=== PATIENT | female | born 1940 | race Caucasian/White ===

== ENCOUNTER 2022-04-30 08:40 | Observation (INO) | payer MEDICARE, MEDICAID, SELFPAY ==
[2022-04-30] VITALS (7 sets, daily range): BP systolic 141–186; BP diastolic 54–74; PULSE 73–78; RESP 16–20; TEMP 36.4–36.7; O2SAT 92–98; BMI 30.9; BMI 33.2
--- NOTE | 2022-04-30 08:48 | XRR_ITS ---
PROCEDURE INFORMATION: Exam: XR Right Ankle Exam date and time: 04/30/2022 9:11 AM Age: 81 years old Clinical indication: Ankle; Right; Patient HX: Fall with pain and visible deformity. ; Additional info: Pain/deformity TECHNIQUE: Imaging protocol: Radiologic exam of the Right ankle. Views: 3 or more views. COMPARISON: No relevant prior studies available. FINDINGS: Bones/joints: Fracture of the distal fibular diaphysis at the level of the tibiofibular syndesmosis, with lateral angulation of the distal fracture fragment. Medial malleolar fracture of the distal tibia. Complete dislocation of the tibiotalar joint. Soft tissues: Significant soft tissue swelling. XR/XR ankle RT min 3V* [id number] IMPRESSION: Ankle fracture and dislocation.
--- NOTE | 2022-04-30 09:29 | XRR_ITS ---
PROCEDURE INFORMATION: Exam: XR Chest Exam date and time: 04/30/2022 9:31 AM Age: 81 years old Clinical indication: Cough and dyspnea; Additional info: Dyspnea/cough; Fall with ankle deformity. TECHNIQUE: Imaging protocol: Radiologic exam of the chest. Views: 1 view. COMPARISON: No relevant prior studies available. FINDINGS: Lungs: The lung parenchyma is clear. Pleural spaces: No pneumothorax. No pleural effusion. Heart/Mediastinum: The cardiomediastinal silhouette is within normal limits. Bones/joints: Unremarkable. XR/XR chest 1V portable [id number] IMPRESSION: No acute cardiopulmonary abnormality.
--- NOTE | 2022-04-30 09:29 | ECG_ITS ---
[facility] Test Date: 2022-04-30 Pat Name: Donita Medina Department: Room: Gender: Female Door To Door Salesman: : 1940 Requested By: Mitchell Yuen Order Number: [id number] Joshua MD: Danny Garrett M.D. Measurements Intervals [place] Rate: 79 P: 63 OR: 232 QRS: -61 QRSD: 139 T: 58 QT: 383 QTc: 439 Interpretive Statements SINUS RHYTHM WITH FIRST DEGREE AV BLOCK RIGHT BUNDLE BRANCH BLOCK [120+ ms QRS DURATION, UPRIGHT V1, 40+ ms S IN I/aVL/V4/V5/V6] LEFT ANTERIOR FASCICULAR BLOCK [QRS AXIS <= -45, QR IN I, RS IN II] LEFT VENTRICULAR HYPERTROPHY AND ST-T CHANGE [VOLTAGE CRITERIA PLUS ST/T ABNORMALITY] No previous ECG available for comparison Electronically Signed On 04-30-2022 14:42:38 INVESTMENT ASSOCIATE by Danny Garrett M.D. [id number]
--- NOTE | 2022-04-30 09:31 | ED_ITS ---
HPI - Fall General: Chief Complaint: Fall Stated Complaint: FALL/ ANKLE DEFORMITY Time Seen by Provider: 04/30/22 08:48 Source: patient Mode of arrival: EMS History of Present Illness: 81-year-old female presents emergency room after a fall at home she was trying get around with her walker which she usually uses to ambulate she is essentially blind for practical purposes that she does have little vision from her right eye. She got lost within her home on the walker stumbled and fell injured her right ankle has an obvious deformity she denies any other injuries. She not strike her head she did not lose consciousness. She is diabetic she is not on any anticoagulants. complaint: fall Onset (ago): minute(s) Fall from: standing Place fall occurred: home Loss of consciousness: None Prolonged down time: no Context: tripped/slipped Associated symptoms-after fall: Denies abdominal pain, chest pain, confusion, difficulty walking, headache(s), hematuria, lightheadedness, neck pain, numbness, short of breath, vertigo or weakness Review of Systems Const: Denies: fever(s), chills, body aches, change in appetite, fatigue or malaise ENMT: Denies: throat pain, ear or mastoid pain, nasal discharge or nasal congestion Card: Denies: chest pain, palpitations, irregular heart rhythm or lightheadedness Resp: Denies: dyspnea, productive cough or non-productive cough GI: Denies: abdominal pain, nausea or vomiting : Denies: hematuria Musc: Denies: neck pain Skin/Breast: Denies: rash or pruritus Neuro: Denies: headache(s), difficulty walking, vertigo or confusion PFS ED PFSH: Medical History (Updated 04/30/22 @ 14:11 by Mitchell Castillo DO) Diabetes mellitus Hypertension Mass of heart valve Surgical History (Updated 04/30/22 @ 14:00 by Scout Hankins MD) H/O: hysterectomy Family History (Updated 04/30/22 @ 14:00 by Scout Hankins MD) Other Diabetes Hypertension Social History (Updated 04/30/22 @ 14:01 by Scout Hankins MD) Smoking and tobacco status: never smoked Alcohol intake: never Household members: spouse Marital status: Physical Exam Const: COMMON NORMALS: no acute distress GENERAL APPEARANCE: cooperative an d comfortable ORIENTATION/CONSCIOUSNESS: Yes awake, Yes oriented to person, Yes oriented to place and Yes oriented to time HENMT: COMMON NORMALS: normocephalic, atraumatic and hearing grossly normal bilaterally HEAD & SCALP: normocephalic and atraumatic Resp: COMMON NORMALS: normal respiratory effort, No retractions, No use of accessory muscles and clear to auscultation bilaterally AUSCULTATION: clear to auscultation bilaterally Cardio: COMMON NORMALS: regular rate, regular rhythm and No murmurs present (Cardio) RATE: regular rate RHYTHM: regular rhythm GI: COMMON NORMALS: Soft to palpation and No hepatosplenomegaly present AU SCULTATION: Yes normoactive bowel sounds PALPATION: Yes Soft to palpation, No Tenderness to palpation present (GI), No Guarding due to palpation present (GI) and Yes No hepatosplenomegaly present Extremity: COMMON NORMALS: capillary refill normal and no calf tenderness OTHER: Obvious deformity the right ankle with eversion. Distal pulses weak but present capillary refill normal. Neuro: SENSORIUM/ORIENTATION: Yes oriented to person, Yes oriented to place and Yes oriented to time Skin: COMMON NORMALS: no rashes or lesions noted GENERAL SKIN EXAM: no rashes or lesions noted Procedures Orthopedic Fracture Reduction Fracture #1: Time Out Performed: Yes Side: right Fracture Reduction Location: other Analgesia: procedural sedation Technique: direct manipulation Post Reduction X-rays Demonstrate: acceptable reduction Post-reduction neuro exam: intact and no change Post-reduction vascular exam: intact and no change Patient Tolerated Procedure: well Procedural Sedation Indication: fracture/dislocation reduction Preparation: environmental monitoring technician applied, pulse oximeter, supplemental O2 applied, reversal agents at bedside, suction/airway equipment at bedside and IV secured Fentanyl: IV Fentanyl dose (mcg): 25 IV Etomidate dose (mg): 5 Complications: none Course Vital Signs: Vital signs: Vital Signs Temperature 97.7 F 04/30/22 08:41 Pulse Rate 74 04/30/22 13:44 Respiratory Rate 18 04/30/22 13:44 Blood Pressure 143/74 04/30/22 13:44 Pulse Oximetry 98 04/30/22 13:44 Oxygen Delivery Me thod 04/30/22 13:44 Oxygen Flow Rate 2 04/30/22 13:44 MDM - Fall Medical Decision Making Conscious sedation with acceptable reduction. Given the extent of the fracture that probably is good is able to get it. She says a significant mount of swelling and ecchymosis already. Reviewed the films online with Dr. Amaya. She does not feel immediate intervention would be appropriate and may cause more complications and long-term. Patient is unable to care for self we will admit to observation look for placement Dr. Amaya to consult while she is an inpatient discussed with Dr. Hankins. Family is anticipating discharge to long-term care facility. Medical Records I reviewed the patient's medical records. Lab Data I reviewed the patient's lab results. 04/30/22 09:48 04/30/22 09:48 Radiology Impressions Chest X-Ray 04/30/22 09:29 IMPRESSION: No acute cardiopulmonary abnormality. Ankle X-Ray 04/30/22 10:46 IMPRESSION: Improved anatomic alignment of the ankle status post casting. Laboratory Results WBC 13.8 10^3/uL (4.0-10.0) H 04/30/22 09:48 RBC 3.61 10^6/uL (4.1-5.3) L 04/30/22 09:48 Hgb 10.6 g/dL (11.5-15.3) L 04/30/22 09:48 Hct 34.1 % (37.0-47.0) L 04/30/22 09:48 MCV 94.5 fl (81-99) 04/30/22 09:48 MCH 29.4 pg (28.0-34.0) 04/30/22 09:48 MCHC 31.1 g/dL (30.0-36.0) 04/30/22 09:48 RDW 13.5 % (12.1-15.1) 04/30/22 09:48 Plt Count 248 10^3/cmm (130-400) 04/30/22 09:48 MPV 9.1 fL (7.4-10.4) 04/30/22 09:48 Neut % (Auto) 82.9 % 04/30/22 09:48 Lymph % (Auto) 8.9 % 04/30/22 09:48 [place] % (Auto) 7.3 % 04/30/22 09:48 Eos % (Auto) 0.1 % 04/30/22 09:48 Baso % (Auto) 0.2 % 04/30/22 09:48 Neut # (Auto) 11.41 10^3/uL (1.8-7.7) H 04/30/22 09:48 Lymph # (Auto) 1.2 10^3/uL (0.8-4.8) 04/30/22 09:48 [place] # (Auto) 1.0 10^3/uL (0.2-0.9) H 04/30/22 09:48 Eos # (Auto) 0.0 10^3/uL (0.0-0.8) 04/30/22 09:48 Baso # (Auto) 0.0 10^3/uL (0.0-0.1) 04/30/22 09:48 Nucleated RBC % (auto) 0 % 04/30/22 09:48 Nucleated RBCs # 0.0 /100WBC 04/30/22 09:48 PT 13.40 SECONDS (12.1-14.9) 04/30/22 09:48 INR 0.99 (0.8-1.2) 04/30/22 09:48 Sodium 136 mmol/L (136-145) 04/30/22 09:48 Potassium 5.1 mmol/L (3.5-5.1) 04/30/22 09:48 Chloride 99 mmol/L (98-107) 04/30/22 09:48 Carbon Dioxide 27 mmol/L (22-29) 04/30/22 09:48 Anion Gap 15.1 (5-19) 04/30/22 09:48 BUN 31 mg/dL (8-23) H 04/30/22 09:48 Creatinine 1.1 mg/dL (0.5-0.9) H 04/30/22 09:48 GFR Calculation Not Reportable 04/30/22 09:48 Glucose 169 mg/dL (65-115) H 04/30/22 09:48 Calculated Osmolality 292 mOsm/kg (285-295) 04/30/22 09:48 Calcium 9.0 mg/dL (8.5-10.5) 04/30/22 09:48 Total Bilirubin 0.3 mg/dL (0.15-1.2) 04/30/22 09:48 AST 13 U/L (0-32) 04/30/22 09:48 ALT 9 U/L (0-33) 04/30/22 09:48 Alkaline Phosphatase 48 U/L (35-105) 04/30/22 09:48 Total Protein 6.9 g/dL (6.6-8.7) 04/30/22 09:48 Albumin 3.8 g/dL (3.5-5.2) 04/30/22 09:48 Globulin 3.1 g/dL (1.3-4.6) 04/30/22 09:48 Digoxin 1.0 ng/mL (0.6-1.2) 04/30/22 09:48 Discharge Plan Discharge Patient Disposition: Placed in Observation Clinical Impression: Closed right trimalleolar fracture Coding Level of Care Code ED Bass Mechanism Maker for Bobbi Joy Exam Detailed
[2022-04-30 09:57] LABS: Basophils % 0.2 %; Eosinophils % 0.1 %; Hematocrit 34.1 % (37.0-47.0); Hemoglobin 10.6 g/dL (11.5-15.3); Lymphocytes # 1.2 10^3/uL (0.8-4.8); Lymphocytes % 8.9 %; Mean Corpuscular HGB Conc 31.1 g/dL (30.0-36.0); Mean Corpuscular Hemoglobin 29.4 pg (28.0-34.0); Mean Corpuscular Volume 94.5 fl (81-99); Mean Platelet Volume 9.1 fL (7.4-10.4); Monocytes % 7.3 %; Neutrophils # 11.41 10^3/uL (1.8-7.7); Neutrophils % 82.9 %; Nucleated Red Blood Cells % 0 %; Platelet Count 248 10^3/cmm (130-400); Red Blood Count 3.61 10^6/uL (4.1-5.3); Red Cell Distribution Width 13.5 % (12.1-15.1); White Blood Count 13.8 10^3/uL (4.0-10.0)
[2022-04-30] MEDS: etomidate 2 mg/mL INJ SDV 10 mL 10 MG IVP (10:06)
[2022-04-30 10:11] LABS: INR 0.99 (0.8-1.2)
[2022-04-30] MEDS: fentaNYL 50 mcg/mL INJ 2mL 25 MCG IVP (10:11)
[2022-04-30 10:18] LABS: Alanine Aminotransferase 9 U/L (0-33); Albumin Level 3.8 g/dL (3.5-5.2); Alkaline Phosphatase 48 U/L (35-105); Anion Gap 15.1 (5-19); Aspartate Amino Transferase 13 U/L (0-32); Blood Urea Nitrogen 31 mg/dL (8-23); Carbon Dioxide 27 mmol/L (22-29); Chloride 99 mmol/L (98-107); Globulin 3.1 g/dL (1.3-4.6); Glucose 169 mg/dL (65-115); Osmolality Calculated 292 mOsm/kg (285-295); Potassium 5.1 mmol/L (3.5-5.1); Sodium 136 mmol/L (136-145); Total Bilirubin 0.3 mg/dL (0.15-1.2); Total Protein 6.9 g/dL (6.6-8.7)
--- NOTE | 2022-04-30 10:46 | XRR_ITS ---
PROCEDURE INFORMATION: Exam: XR Right Ankle Exam date and time: 04/30/2022 10:22 AM Age: 81 years old Clinical indication: Pain; Ankle; Right; Additional info: Fall. Post reduction ankle. TECHNIQUE: Imaging protocol: Radiologic exam of the Right ankle. Views: 1 or 2 views. COMPARISON: CR XR ankle RT min 3V* [id number] 04/30/2022 9:11 AM FINDINGS: Bones/joints: Casting material obscuring fine bony details. Improved near anatomic alignment of the distal fibular fracture. Improved anatomic alignment of the ankle mortise. Persistent displacement of the medial malleolar fracture. Soft tissues: Soft tissue swelling. XR/XR ankle RT 2V [id number] IMPRESSION: Improved anatomic alignment of the ankle status post casting.
--- NOTE | 2022-04-30 11:03 | PC.NURSE ---
dudley cath placed using orthotic technician. Dr. Castillo verbal order
--- NOTE | 2022-04-30 13:20 | DCPLANNER ---
business relationship manager had message to speak with patient about possible long term placement. Patient has medicare, and has not been in the hospital for a qualifying stay. business relationship manager did email financial counselors to ask if they would speak with patient and her daughter to fill out paperwork for medicaid. Patients daughter stated that patient has had medicaid in the past. Patients daughter did state that patient has a wheelchair in the home, but the wheelchair does not fit thru the doors in the home. The family would really like patient to go into a correction facility. business relationship manager explained that patient has not been admitted to the hospital for a qualifying stay for insurance to pay for long term stay. Patients daughter stated that she would like patient to go to [facility]. business relationship manager called [facility], spoke with Angie, gave her patients information, and will fax patients information to the long term fax number [phone]. business relationship manager also gave patients daughter the phone number to the facility for her to call and speak with the facility about possible placement. business relationship manager did have patients daughter sign patient choice sheet stating that [facility] is patients first choice, had it scanned into patients chart.
--- NOTE | 2022-04-30 13:57 | PM.HP ---
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 She is accompanied in ER by her family. She has been otherwise at her usual state of health. Her case was discussed with on-call orthopedics and podiatry. Fracture was reduced in ER with reassessment for surgical repair after a week due to the amount of swelling. Request is made for observation in the hospital. Review of Systems Const: Denies: fever(s), chills, body aches, change in appetite, fatigue or malaise Eyes: Reports: other (Partial blindness); Denies: change in vision ENMT: Denies: throat pain, ear or mastoid pain, nasal discharge or nasal congestion Card: Denies: chest pain, palpitations, irregular heart rhythm or lightheadedness Resp: Denies: dyspnea, productive cough or non-productive cough GI: Denies: abdominal pain, nausea or vomiting : Denies: hematuria Musc: Reports: extremity pain (Right lower leg/ankle); Denies: neck pain Skin/Breast: Denies: rash or pruritus Neuro: Denies: headache(s), difficulty walking, vertigo or confusion Medications/Allergies Home Medications Medication Instructions Recorded Confirmed Last Taken Type alendronate 70 mg tablet 70 mg PO Q7D 04/30/22 04/30/22 04/26/22 History amitriptyline 25 mg tablet 25 mg PO BEDTIME 04/30/22 04/30/22 04/29/22 History calcium carbonate 500 mg-vitamin 2 tab PO QAM 04/30/22 04/30/22 04/29/22 History D3 5 mcg (200 unit) tablet (Oyster Shell Calcium-Vitamin D3) digoxin 250 mcg (0.25 mg) tablet 250 mcg PO QAM 04/30/22 04/30/22 04/29/22 History ferrous sulfate 325 mg (65 mg 325 mg PO BEDTIME 04/30/22 04/30/22 04/29/22 History iron) tablet (FeroSul) fosinopril 20 mg tablet 20 mg PO QAM 04/30/22 04/30/22 04/29/22 History furosemide 40 mg tablet 20 mg PO QAM 04/30/22 04/30/22 04/29/22 History insulin glargine 100 unit/mL 30 unit SUBCUT BEDTIME 04/30/22 04/30/22 04/29/22 History subcutaneous solution (Lantus U-100 Insulin) latanoprost 0.005 % eye drops 1 drp ophthalmic (eye) BEDTIME 04/30/22 04/30/22 04/29/22 History lovastatin 40 mg tablet 40 mg PO QPM 04/30/22 04/30/22 04/29/22 History metformin 1,000 mg tablet 1,000 mg PO BID 04/30/22 04/30/22 04/29/22 History metoprolol tartrate 25 mg tablet 25 mg PO BEDTIME 04/30/22 04/30/22 04/29/22 History pioglitazone 45 mg tablet 45 mg PO QAM 04/30/22 04/30/22 04/29/22 History potassium chloride 20 mEq 20 meq PO QAM 04/30/22 04/30/22 04/29/22 History tablet,extended release(part/cryst) vit C 250 mg-vit E 90 mg-zinc 40 1 tab PO BID 04/30/22 04/30/22 04/29/22 History mg-copper 1 dx-vlevtm-whntvj capsule (PreserVision AREDS-2) warfarin 5 mg tablet See Rx Instructions .Route .COMPLEX 04/30/22 04/30/22 04/29/22 History Allergies Allergy/AdvReac Type Severity Reaction Status Date / Time No Known Allergies Allergy Verified 04/30/22 09:10 PFSH Acute PFSH: Medical History (Updated 04/30/22 @ 14:53 by Scout Hankins MD) Diabetes mellitus Hypertension Mass of heart valve Surgical History (Updated 04/30/22 @ 14:00 by Scout Hankins MD) H/O: hysterectomy Family History (Updated 04/30/22 @ 14:00 by Scout Hankins MD) Other Diabetes Hypertension Social History (Updated 04/30/22 @ 14:01 by Scout Hankins MD) Smoking and tobacco status: never smoked Alcohol intake: never Household members: spouse Marital status: Vitals/I&O/Wt Last Vital Signs Temp 97.7 F 04/30/22 08:41 Pulse 74 04/30/22 13:44 Resp 18 04/30/22 13:44 BP 143/74 04/30/22 13:44 Pulse Ox 98 04/30/22 13:44 O2 Del Method 04/30/22 13:44 O2 Flow Rate 2 04/30/22 13:44 Weight last 48 hrs Weight 79.379 kg Physical Exam Narrative: Family at bedside Const: COMMON NORMALS: patient oriented x3 and alert GENERAL APPEARANCE: cooperative ORIENTATION/CONSCIOUSNESS: Yes awake HENMT: COMMON NORMALS: oropharynx normal Eye: OTHER: L eye blindness Neck/C-Spine: COMMON NORMALS: no JVD Resp: COMMON NORMALS: normal respiratory effort and clear to auscultation bilaterally AUSCULTATION: clear to auscultation bilaterally Cardio: COMMON NORMALS: no JVD, regular rhythm, S1 normal heart sound present, S2 normal heart sound present and No murmurs present (Cardio) RHYTHM: regular rhythm HEART SOUNDS: S1 normal heart sound present and S2 normal heart sound present GI: COMMON NORMALS: Normal to inspection, nondistended, normoactive bowel sounds present, Soft to palpation and non-tender PALPATION: Yes Soft to palpation Extremity: NARRATIVE EXTREMITY EXAM: RLE in splint. Toes appear pink, perfused. Neuro: COMMON NORMALS: patient oriented x3 and moves all extremities SENSORIUM/ORIENTATION: Yes alert Skin: COMMON NORMALS: no rashes or lesions noted GENERAL SKIN EXAM: no rashes or lesions noted Data 04/30/22 09:48 04/30/22 09:48 A&P Assessment and plan (1) Closed right trimalleolar fracture: Status post splint in ER with significant edema. Plan will be for surgical repair of after a week after edema has had time to subside. Will place in observation at this time, established pain control, reassess in the morning regarding swelling, and reassess hemoglobin due to noted anemia. PT assessment. At risk for falling. Lives with elderly at home. Unable to use wheelchair there. Case management consultation for disposition planning. Follow-up with orthopedics and podiatry. She used to be on warfarin but reportedly no longer taking it currently. (2) Hypertension: Hypotensive in ER, likely related to fracture, pain, hospitalization. Pressure now better at 143/74. Continue home medications. Monitor blood pressure. Cardiac diet. (3) Normocytic anemia: With acute fracture. Normocytic anemia. Follow-up hemoglobin. (4) JAMES (acute kidney injury): JAMES versus possible CKD with diabetes, hypertension. Creatinine 1.1. Follow-up renal function. Check CK. Avoid NSAIDs. Plan Diabetes: SSI, consistent carbohydrate diet. Attestations Medical Necessity Statement*: Place in observation for additional assessment of management following trimalleolar right ankle fracture, reassessment of anemia, possible JAMES, disposition planning. Coding Level of Care Code Acute Code for Chg Fwd Diagnoses Closed right trimalleolar fracture S82.851A Hypertension I10 Normocytic anemia D64.9 JAMES (acute kidney injury) N17.9
--- NOTE | 2022-04-30 16:47 | PC.NURSE ---
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
[2022-04-30 16:55] LABS: Glucose Point of Care 155 mg/dL (70-110)
[2022-04-30] MEDS: atorvastatin 40 mg Tablet PO (17:01)
[2022-04-30] MEDS: heparin 5,000 unit/mL INJ 1 mL 5000 UNIT SUBCUT (17:01)
--- NOTE | 2022-04-30 17:42 | P.CONIM_ITS ---
Providers/Reason For Consult Consulting Physician/Specialty*: Dr. Jamzin Moreira - Orthopedics Reason for Consult*: Right ankle fracture - Trimalleolar Requesting Physician: Dr. Mitchell Castillo Attending Physician: Scout Hankins Primary Care Provider: Kassidy Delarosa History of Present Illness History of Present Illness Donita Medina is a 81 year old female who presented to the emergency department earlier today. 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 Occasionally, she gets disoriented at home, and this did occur today. She fell down and presented to the emergency department with a displaced trimalleolar right ankle fracture. Reduction was accomplished in the emergency department and the extremity was splinted. The patient will require surgical intervention, but secondary to the swelling and medical issues, this will need to be delayed likely 10 to 14 days. It will be delayed at least a week. The patient will likely require usp to maintain elevation so that the swelling can be decreased, decrease risk of infection, and decrease long-term potential wound issues. Review of Systems Const: Denies: fever(s), chills, body aches, change in appetite, fatigue or malaise Eyes: Reports: other (Partial blindness); Denies: change in vision ENMT: Denies: throat pain, ear or mastoid pain, nasal discharge or nasal congestion Card: Denies: chest pain, palpitations, irregular heart rhythm or lightheadedness Resp: Denies: dyspnea, productive cough or non-productive cough GI: Denies: abdominal pain, nausea or vomiting : Denies: hematuria Musc: Reports: extremity pain (Right lower leg/ankle); Denies: neck pain Skin/Breast: Denies: rash or pruritus Neuro: Denies: headache(s), difficulty walking, vertigo or confusion Medications/Allergies Home Medications Medication Instructions Recorded Confirmed Last Taken Type alendronate 70 mg tablet 70 mg PO Q7D 04/30/22 04/30/22 04/26/22 History amitriptyline 25 mg tablet 25 mg PO BEDTIME 04/30/22 04/30/22 04/29/22 History calcium carbonate 500 mg-vitamin 2 tab PO QAM 04/30/22 04/30/22 04/29/22 History D3 5 mcg (200 unit) tablet (Oyster Shell Calcium-Vitamin D3) digoxin 250 mcg (0.25 mg) tablet 250 mcg PO QAM 04/30/22 04/30/22 04/29/22 History ferrous sulfate 325 mg (65 mg 325 mg PO BEDTIME 04/30/22 04/30/22 04/29/22 H istory iron) tablet (FeroSul) fosinopril 20 mg tablet 20 mg PO QAM 04/30/22 04/30/22 04/29/22 History furosemide 40 mg tablet 20 mg PO QAM 04/30/22 04/30/22 04/29/22 History insulin glargine 100 unit/mL 30 unit SUBCUT BEDTIME 04/30/22 04/30/22 04/29/22 History subcutaneous solution (Lantus U-100 Insulin) latanoprost 0.005 % eye drops 1 drp ophthalmic (eye) BEDTIME 04/30/22 04/30/22 04/29/22 History lovastatin 40 mg tablet 40 mg PO QPM 04/30/22 04/30/22 04/29/22 History metformin 1,000 mg tablet 1,000 mg PO BID 04/30/22 04/30/22 04/29/22 History metoprolol tartrate 25 mg tablet 25 mg PO BEDTIME 04/30/22 04/30/22 04/29/22 History pioglitazone 45 mg tablet 45 mg PO QAM 04/30/22 04/30/22 04/29/22 History potassium chloride 20 mEq 20 meq PO QAM 04/30/22 04/30/22 04/29/22 History tablet,extended release(part/cryst) vit C 250 mg-vit E 90 mg-zinc 40 1 tab PO BID 04/30/22 04/30/22 04/29/22 History mg-copper 1 [id number] capsule (PreserVision AREDS-2) warfarin 5 mg tablet See Rx Instructions .Route .COMPLEX 04/30/22 04/30/2204/29 History Allergies Allergy/AdvReac Type Severity Reaction Status Date / Time No Known Allergies Allergy Verified 04/30/22 09:10 Current Medications Generic Name Dose Route Start Last Admin Trade Name Freq PRN Reason Stop Dose Admin Atorvastatin Calcium 40 mg 04/30/22 18:00 04/30/22 17:01 Atorvastatin 40 Mg Tablet PO 40 mg QPM DANIEL Administration Heparin Sodium (Porcine) 5,000 unit 04/30/22 15:48 04/30/22 17:01 Heparin 5,000 Unit/Ml Inj 1 Ml SUBCUT 5,000 unit Q12H DANIEL Administration PFSH Acute PFSH: Medical History (Updated 04/30/22 @ 18:48 by Jazmin Moreira MD) Diabetes mellitus Hypertension Mass of heart valve Surgical History (Updated 04/30/22 @ 14:00 by Scout Hankins MD) H/O: hysterectomy Family History (Updated 04/30/22 @ 14:00 by Scout Hankins MD) Other Diabetes Hypertension Social History (Updated 04/30/22 @ 14:01 by Scout Hankins MD) Smoking and tobacco status: never smoked Alcohol intake: never Household members: spouse Marital status: Vitals/I&O/Wt Last Vital Signs Temp 97.6 F 04/30/22 16:00 Pulse 78 04/30/22 16:00 Resp 20 H 04/30/22 16:00 BP 174/66 04/30/22 16:00 Pulse Ox 97 04/30/22 15:48 O2 Del Method 04/30/22 16:00 O2 Flow Rate 2 04/30/22 15:48 04/30/22 04/30/22 04/30/22 06:59 14:59 22:59 Intake Total 60 / 60 Output Total 850 / 850 Balance -790 / -790 Weight last 48 hrs Weight 187 lb 6.4 oz Weight 175 lb Physical Exam Const: COMMON NORMALS: no acute distress, average body habitus, patient oriented x3 and alert GENERAL APPEARANCE: cooperative and comfortable NUTRITIONAL APPEARANCE: overweight ORIENTATION/CONSCIOUSNESS: Yes awake HENMT: COMMON NORMALS: normocephalic and atraumatic HEAD & SCALP: normocephalic and atraumatic Eye: GENERAL EYE: other (Near complete blindness left eye, partial blindness right eye to light only) Chest: COMMONS NORMALS: normal inspection of the chest Resp: COMMON NORMALS: normal respiratory effort EFFORT & INSPECTION: Yes able to speak in complete sentences and Yes symmetric chest movement Extremity: RIGHT LOWER EXTREMITY: Yes foot & digits (Splint is in place.) Right ankle: Yes ROM (Not evaluated.) and Yes neurovascular exam (Decreased sensation, but normal for patient.) Neuro: COMMON NORMALS: patient oriented x3 SENSORIUM/ORIENTATION: Yes alert Psych: COMMON NORMALS: mental status grossly normal APPEARANCE: Yes grossly normal ATTITUDE: Yes calm and Yes engaged ATTENTION/CONCENTRATION: Yes attention grossly intact Skin: COMMON NORMALS: no rashes or lesions noted GENERAL SKIN EXAM: no rashes or lesions noted Data 04/30/22 09:48 04/30/22 09:48 Xray Ortho: My impression: I have evaluated both pre and reduction images. The patient has a trimalleolar ankle fracture dislocation which is visualized on the prereduction imaging. Post reduction demonstrates the fracture is relatively well reduced. There is a significant soft tissue envelope and swelling. A&P Assessment and plan (1) Closed right trimalleolar fracture: Secondary to the patient's history of diabetes, blindness, and difficulty with ambulation prior to this fracture, she will need to be admitted to the hospital for elevation and care of her other medical issues. The patient would not be able to manage at home without further swelling and issue with the potential for eventual surgery after swelling has decreased. I discussed her case with Dr. Ricardo, and we are hopeful to be able to do it together next Wednesday, May 08. This will be discussed with the patient and her daughter tomorrow. (2) Diabetes mellitus: (3) Hypertension: (4) Partial blindness: Coding Level of Care Code Acute Code for [facility] Diagnoses Closed right trimalleolar fracture S82.851A Diabetes mellitus E11.9 Hypertension I10 Partial blindness H54.7
[2022-04-30] MEDS: insulin lispro 100 unit/1 mL SUBCUT ×2 (17:58→22:28)
[2022-04-30] MEDS: metoprolol tartrate 25 mg Tablet PO (20:02)
[2022-04-30] MEDS: ferrous sulfate EC 325 mg Tablet PO (20:02)
[2022-04-30] MEDS: amitriptyline 25 mg Tablet PO (20:02)
[2022-04-30] MEDS: insulin glargine 100 units/1 mL 30 UNIT SUBCUT (20:03)
[2022-04-30 21:02] LABS: Glucose Point of Care 223 mg/dL (70-110)
[2022-05-01] VITALS: BP 146/66; PULSE 68; RESP 20; TEMP 37.2; O2SAT 99
[2022-05-01 04:00] VITALS: BP 131/67; PULSE 69; RESP 18; TEMP 37.4; O2SAT 97
[2022-05-01] MEDS: heparin 5,000 unit/mL INJ 1 mL 5000 UNIT SUBCUT (04:55)
[2022-05-01 05:23] LABS: Basophils % 0.3 %; Eosinophils # 0.1 10^3/uL (0.0-0.8); Eosinophils % 0.8 %; Hematocrit 30.1 % (37.0-47.0); Hemoglobin 9.1 g/dL (11.5-15.3); Lymphocytes # 1.6 10^3/uL (0.8-4.8); Lymphocytes % 25.7 %; Mean Corpuscular HGB Conc 30.2 g/dL (30.0-36.0); Mean Corpuscular Hemoglobin 29.1 pg (28.0-34.0); Mean Corpuscular Volume 96.2 fl (81-99); Mean Platelet Volume 9.2 fL (7.4-10.4); Monocytes % 15.7 %; Neutrophils % 57.2 %; Nucleated Red Blood Cells % 0 %; Platelet Count 212 10^3/cmm (130-400); Red Blood Count 3.13 10^6/uL (4.1-5.3); Red Cell Distribution Width 13.8 % (12.1-15.1); White Blood Count 6.1 10^3/uL (4.0-10.0)
[2022-05-01 05:57] LABS: Anion Gap 11.5 (5-19); Blood Urea Nitrogen 27 mg/dL (8-23); Calcium 8.7 mg/dL (8.5-10.5); Carbon Dioxide 28 mmol/L (22-29); Chloride 103 mmol/L (98-107); Glucose 74 mg/dL (65-115); Osmolality Calculated 290 mOsm/kg (285-295); Potassium 4.5 mmol/L (3.5-5.1); Sodium 138 mmol/L (136-145)
[2022-05-01 06:02] VITALS: PULSE 69
[2022-05-01] MEDS: digoxin 250 mcg Tablet PO (06:02)
[2022-05-01] MEDS: FUROsemide 40 mg Tablet 20 MG PO (06:02)
[2022-05-01] MEDS: calcium carb-vit d 500mg-200unit 1 Tablet 2 EACH PO (06:02)
[2022-05-01] MEDS: lisinopril 20 mg Tablet PO (06:02)
[2022-05-01 06:40] LABS: Glucose Point of Care 81 mg/dL (70-110)
[2022-05-01 08:00] VITALS: BP 93/52; PULSE 67; RESP 16; TEMP 36.9; O2SAT 99
--- NOTE | 2022-05-01 10:48 | P.DS_ITS ---
Discharge Providers Date of Admission: 04/30/22 13:54 Date of Discharge: May 01, 2022 Attending Provider at Admission: Scout Hankins Attending Provider at Discharge: Scout Hankins Primary Care Provider: Kassidy Delarosa Diagnoses at Discharge Discharge Diagnosis (1) Closed right trimalleolar fracture: Status: Acute (2) Diabetes mellitus: Status: Acute (3) Hypertension: Status: Acute (4) Partial blindness: Status: Acute Reason for Visit Reason for Visit: FALL/ ANKLE DEFORMITY Brief History: Pleasant 81-year-old lady with history of partial blindness, occasionally getting disoriented at home, walks with a walker, became disoriented and fell down with finding of trimalleolar right ankle fracture in ER without findings of other injury or other complaints.? She is accompanied in ER by her family.? She has been otherwise at her usual state of health.? Her case was discussed with on-call orthopedics and podiatry.? Fracture was reduced in ER with reassessment for surgical repair after a week due to the amount of swelling.? Hospital Course Hospital Course She was observed in the hospital with reassessment of blood count, right lower extremity. She was evaluated by orthopedics who also discussed the case with podiatry with tentative plan to repair the fracture next Monday 05/08. As she could not manage at home currently she is discharging to [facility]. She has not been taking her Coumadin and this is stopped on her medication list. She is given prescription for Lovenox for DVT prophylaxis. Physical Exam Const: COMMON NORMALS: patient oriented x3 and alert GENERAL APPEARANCE: cooperative ORIENTATION/CONSCIOUSNESS: Yes awake HENMT: COMMON NORMALS: oropharynx normal OTHER: Chronic mass under R chin which she says is followed by her primary provider. Eye: OTHER: L eye blindness Neck/C-Spine: COMMON NORMALS: no JVD Resp: COMMON NORMALS: normal respiratory effort and clear to auscultation bilaterally AUSCULTATION: clear to auscultation bilaterally Cardio: COMMON NORMALS: no JVD, regular rhythm, S1 normal heart sound present, S2 normal heart sound present and No murmurs present (Cardio) RHYTHM: regular rhythm HEART SOUNDS: S1 normal heart sound present and S2 normal heart sound present GI: COMMON NORMALS: Normal to inspection, nondistended, normoactive bowel sounds present, Soft to palpation and non-tender PALPATION: Yes Soft to palpation Extremity: COMMON NORMALS: no joint enlargement and no pedal edema NARRATIVE EXTREMITY EXAM: RLE in splint. Toes appear pink, perfused. Moves toes. Neuro: COMMON NORMALS: patient oriented x3 and moves all extremities SENSORIUM/ORIENTATION: Yes alert Skin: COMMON NORMALS: no rashes or lesions noted GENERAL SKIN EXAM: no rashes or lesions noted Discharge Data Studies Completed and Pending Completed Studies During Hospitalization Category Date Time Status XR ankle RT 2V [id number] Stat Exams 04/30/22 10:46 Completed XR ankle RT min 3V* [id number] Stat Exams 04/30/22 08:48 Completed XR chest 1V portable [id number] Stat Exams 04/30/22 09:29 Completed Pending at discharge Category Date Time Status COVID [SARS Covid-2 Antigen] Routine Lab 05/01/22 09:10 Uncollected Radiology Impressions Chest X-Ray 04/30/22 09:29 IMPRESSION: No acute cardiopulmonary abnormality. Ankle X-Ray 04/30/22 10:46 IMPRESSION: Improved anatomic alignment of the ankle status post casting. Laboratory Results WBC 6.1 10^3/uL (4.0-10.0) 05/01/22 05:08 RBC 3.13 10^6/uL (4.1-5.3) L 05/01/22 05:08 Hgb 9.1 g/dL (11.5-15.3) L 05/01/22 05:08 Hct 30.1 % (37.0-47.0) L 05/01/22 05:08 MCV 96.2 fl (81-99) 05/01/22 05:08 MCH 29.1 pg (28.0-34.0) 05/01/22 05:08 MCHC 30.2 g/dL (30.0-36.0) 05/01/22 05:08 RDW 13.8 % (12.1-15.1) 05/01/22 05:08 Plt Count 212 10^3/cmm (130-400) 05/01/22 05:08 MPV 9.2 fL (7.4-10.4) 05/01/22 05:08 Neut % (Auto) 57.2 % 05/01/22 05:08 Lymph % (Auto) 25.7 % 05/01/22 05:08 [place] % (Auto) 15.7 % 05/01/22 05:08 Eos % (Auto) 0.8 % 05/01/22 05:08 Baso % (Auto) 0.3 % 05/01/22 05:08 Neut # (Auto) 3.50 10^3/uL (1.8-7.7) 05/01/22 05:08 Lymph # (Auto) 1.6 10^3/uL (0.8-4.8) 05/01/22 05:08 [place] # (Auto) 1.0 10^3/uL (0.2-0.9) H 05/01/22 05:08 Eos # (Auto) 0.1 10^3/uL (0.0-0.8) 05/01/22 05:08 Baso # (Auto) 0.0 10^3/uL (0.0-0.1) 05/01/22 05:08 Nucleated RBC % (auto) 0 % 05/01/22 05:08 Nucleated RBCs # 0.0 /100WBC 05/01/22 05:08 PT 13.40 SECONDS (12.1-14.9) 04/30/22 09:48 INR 0.99 (0.8-1.2) 04/30/22 09:48 Sodium 138 mmol/L (136-145) 05/01/22 05:08 Potassium 4.5 mmol/L (3.5-5.1) 05/01/22 05:08 Chloride 103 mmol/L (98-107) 05/01/22 05:08 Carbon Dioxide 28 mmol/L (22-29) 05/01/22 05:08 Anion Gap 11.5 (5-19) 05/01/22 05:08 BUN 27 mg/dL (8-23) H 05/01/22 05:08 Creatinine 1.1 mg/dL (0.5-0.9) H 05/01/22 05:08 GFR Calculation Not Reportable 05/01/22 05:08 Glucose 74 mg/dL (65-115) 05/01/22 05:08 POC Glucose 81 mg/dL (70-110) 05/01/22 06:26 Calculated Osmolality 290 mOsm/kg (285-295) 05/01/22 05:08 Calcium 8.7 mg/dL (8.5-10.5) 05/01/22 05:08 Total Bilirubin 0.3 mg/dL (0.15-1.2) 04/30/22 09:48 AST 13 U/L (0-32) 04/30/22 09:48 ALT 9 U/L (0-33) 04/30/22 09:48 Alkaline Phosphatase 48 U/L (35-105) 04/30/22 09:48 Total Protein 6.9 g/dL (6.6-8.7) 04/30/22 09:48 Albumin 3.8 g/dL (3.5-5.2) 04/30/22 09:48 Globulin 3.1 g/dL (1.3-4.6) 04/30/22 09:48 Digoxin 1.0 ng/mL (0.6-1.2) 04/30/22 09:48 Vitals Last Vital Signs Temp 98.4 F 05/01/22 08:00 Pulse 67 05/01/22 08:00 Resp 16 05/01/22 08:00 BP 93/52 05/01/22 08:00 Pulse Ox 99 05/01/22 08:00 O2 Del Method 05/01/22 08:00 O2 Flow Rate 2 05/01/22 04:00 Discharge Plan Discharge Patient Disposition: Xfer SNF Condition: Stable Prescriptions: New Lovenox 30 mg/0.3 mL syringe 30 mg SUBCUT DAILY Qty: 3 0RF hydromorphone 2 mg tablet 2 mg PO Q6H PRN (Reason: pain) Qty: 12 0RF Continued furosemide 40 mg tablet 20 mg PO QAM latanoprost 0.005 % drops 1 drp ophthalmic (eye) BEDTIME Rx Instructions: into left eye Lantus U-100 Insulin 100 unit/mL solution 30 unit SUBCUT BEDTIME alendronate 70 mg tablet 70 mg PO Q7D Rx Instructions: on wednesday lovastatin 40 mg tablet 40 mg PO QPM pioglitazone 45 mg tablet 45 mg PO QAM fosinopril 20 mg tablet 20 mg PO QAM digoxin 250 mcg (0.25 mg) tablet 250 mcg PO QAM potassium chloride 20 mEq tablet,ER particles/crystals 20 meq PO QAM amitriptyline 25 mg tablet 25 mg PO BEDTIME FeroSul 325 mg (65 mg iron) tablet 325 mg PO BEDTIME metformin 1,000 mg tablet 1,000 mg PO BID metoprolol tartrate 25 mg tablet 25 mg PO BEDTIME Oyster Shell Calcium-Vit D3 500 mg-5 mcg (200 unit) tablet 2 tab PO QAM PreserVision AREDS-2 250-90-40-1 mg Capsule 1 tab PO BID Discontinued warfarin 5 mg tablet See Rx Instructions .ROUTE .COMPLEX Rx Instructions: 5mg po in the am on wed,,wed,wed and wed and 7.5mg po in the am on wed and Discharge Orders: Discharge Order (Routine); Ordered 05/01/22 Ordered By: Scout Hankins Referrals: [facility] [Outside] Kassidy Delarosa [Primary Care Provider] - 4-7 days Discharge Diet: Cardiac and Diabetic Discharge Activity: Limit activity as instructed, Wheelchair as instructed and As per PT/OT instructions Patient Instructions: Opioid Safety, Pain Management Activity Restrictions/Additional Instructions: Elevate right lower extremity above the level of your heart as much as possible. Nonweightbearing right lower extremity. Maintain current splint. Plans have been made for surgery on May 08 at 7 AM. The patient will need to be at the hospital at 5:30 AM on 05/08/22. The patient will need to be n.p.o. after midnight on , 05/07 for surgery on 05/08. Please arrange for transportation to hospital. Discontinue coumadin today. Patient is on lovenox instead. Discharge Attestations Time Spent in Discharge Care*: greater than 30 min Quality Metrics Clinical Quality Measures [ No reported AMI, CVA or VTE this stay] Coding Level of Care Code Acute Chg FW DC note Exam Comprehensive Diagnoses Closed right trimalleolar fracture S82.851A Diabetes mellitus E11.9 Hypertension I10 Partial blindness H54.7
[2022-05-01 11:38] LABS: SARS Covid-2 Antigen negative (Negative)
--- NOTE | 2022-05-01 11:39 | PC.CHAP ---
Pastoral Care Encounter/Spiritual Assessment Type of Contact [] Declined real estate instructor visit [] Patient/Family/Request visit [] Outpatient visit [] Follow-up visit [] Physician referral [] Code/Alert [x] Routine visit [] Staff referral [] Actively dying []x Patient sleeping [] Family support [] [] Out of room [] Palliative care [] [] Receiving care in room [] Pre-surgical visit [] Trauma [] Long length of stay [] ICU visit [] Other: Relational/Emotional Strength [] Patient feels connected with others/family/visitors/staff [] Distress [] Loneliness/isolation [] Abandonment Spirituality of Patient [] Person of Birgit [] Attends Rastafari of their Birgit [] Believes in Prayer [] Reads Bible or Orthodoxy materials [] There are Spiritual issues to be addressed Busperson Interventions [] Prayer [] Active listening [] Non-anxious presence [] Spiritual/emotional support [] Crisis/trauma care [] Spiritual counseling [] Bereavement support [] Provided bereavement packet [] Provided Bible/devotional materials [] Provided toy/stuffed animal, coloring book to patient or family member [] Provided Communion [] Anointing/[place] [] Salvation [] Completed spiritual assessment [] Other: Impact on Illness or Injury [] Angry [] Fearful [] Anxious [] Often cries [] Exhaustion [] Unable to work [] Unable to attend scientologist [] Unable to walk/stand [] Unable to read [] Unable to drive [] Unable to eat/drink [] Unable to sleep [] Unable to be with family [] Patient intubated [] Other: Summary Time spent with patient
[2022-05-01 11:54] LABS: Glucose Point of Care 171 mg/dL (70-110)
[2022-05-01 12:00] VITALS: BP 144/56; PULSE 72; RESP 18; TEMP 37.1; O2SAT 99
[2022-05-01] MEDS: insulin lispro 100 unit/1 mL SUBCUT (12:52)
[2022-05-01 14:50] VITALS: BP 144/56; PULSE 72; RESP 18; TEMP 37.1; O2SAT 99
--- NOTE | 2022-05-01 15:33 | P.PN_ITS ---
Subjective Subjective: In her room today with her family. Discussion regarding primary fusion of the ankle has been undertaken with the patient, her daughter, and her . All are in agreement that this would be the most appropriate plan. Medications: Reviewed: Yes Vitals/I&O/Wt Last Vital Signs Temp 98.7 F 05/01/22 12:00 Pulse 72 05/01/22 12:00 Resp 18 05/01/22 12:00 BP 144/56 05/01/22 12:00 Pulse Ox 99 05/01/22 12:00 O2 Del Method 05/01/22 12:00 O2 Flow Rate 2 05/01/22 04:00 05/01/22 05/01/22 05/01/22 06:59 14:59 22:59 Intake Total 120 / 620 480 / 480 Output Total 900 / 1750 Balance -780 / -1130 480 / 480 Weight last 48 hrs Weight 187 lb 6.4 oz Weight 175 lb Physical Exam Const: COMMON NORMALS: no acute distress, average body habitus, patient oriented x3 and alert GENERAL APPEARANCE: cooperative and comfortable NUTRITIONAL APPEARANCE: overweight ORIENTATION/CONSCIOUSNESS: Yes awake HENMT: COMMON NORMALS: normocephalic and atraumatic HEAD & SCALP: normocephalic and atraumatic Eye: GENERAL EYE: other (Near complete blindness left eye, partial blindness right eye to light only) Chest: COMMONS NORMALS: normal inspection of the chest Resp: COMMON NORMALS: normal respiratory effort EFFORT & INSPECTION: Yes able to speak in complete sentences and Yes symmetric chest movement Extremity: NARRATIVE EXTREMITY EXAM: Patient remains in the splint on her right lower extremity. She appears comfortable. There has been no significant change in her physical examination. Neuro: COMMON NORMALS: patient oriented x3 SENSORIUM/ORIENTATION: Yes alert Psych: COMMON NORMALS: mental status grossly normal APPEARANCE: Yes grossly normal ATTITUDE: Yes calm and Yes engaged ATTENTION/CONCENTRATION: Yes attention grossly intact Skin: COMMON NORMALS: no rashes or lesions noted GENERAL SKIN EXAM: no rashes or lesions noted Data 05/01/22 05:08 05/01/22 05:08 A&P Assessment and plan (1) Closed right trimalleolar fracture: Secondary to the patient's history of diabetes, blindness, and difficulty with ambulation prior to this fracture, she will need to be admitted to the hospital for elevation and care of her other medical issues. The patient would not be able to manage at home without further swelling and issue with the potential for eventual surgery after swelling has decreased. I discussed her case with Dr. Ricardo, and we are planning a joint procedure next May 08 at 7 AM. This has been scheduled here in the hospital, and the patient will require transportation for the surgical intervention. Surgery is primary fusion of the patient's right ankle. The patient, her daughter, and her are in agreement after discussion of risks and potential complications. (2) Diabetes mellitus: (3) Hypertension: (4) Partial blindness: Attestations Medical Necessity Statement*: Plans for discharge to usp at this point. Coding Level of Care Code Acute Code for [facility] Diagnoses Closed right trimalleolar fracture S82.851A Diabetes mellitus E11.9 Hypertension I10 Partial blindness H54.7
--- NOTE | 2022-05-01 16:12 | PC.NURSE ---
dr. morrow gave rn verbal orders for pt to stop coumadin after pt d/c. rn called snf and spoke with pts nurse thang to give her the order.
== END 2022-05-01 14:50 | disposition skilled nursing facility (03) ==
LOC: ER 14:11 → MEDSURG 15:08
PROVIDERS: Admitting Provider Internal Medicine; Emergency Provider Family Medicine; PCP Registered Nurse; Visit Provider Internal Medicine
DX: S82.851A Displaced trimalleolar fracture of right lower leg, initial encounter for closed fracture (principal); W19.XXXA Unspecified fall, initial encounter; E11.9 Type 2 diabetes mellitus without complications; I10 Essential (primary) hypertension; H54.7 Unspecified visual loss; N17.9 Acute kidney failure, unspecified; Z79.4 Long term (current) use of insulin
CPT/HCPCS: 27818; 36415; 36416; 71045; 73600; 73610; 80048; 80053; 80162; 82962; 85025; 85610; 87426; 93005; 96372; 99285; G0378; J1644; J1815; J3010; J3490

== ENCOUNTER 2022-05-08 14:11 | Inpatient (IN) | payer MEDICARE, MEDICAID, SELFPAY ==
[2022-05-07 15:49] VITALS: BMI 30.6
[2022-05-08] VITALS (28 sets, daily range): BP systolic 122–186; BP diastolic 45–76; PULSE 60–102; RESP 15–18; TEMP 36.6–37.6; O2SAT 86–100
[2022-05-08] MEDS: acetaminophen 1,000 MG/100 ML PIGGYBACK 400 MG IV (06:25)
[2022-05-08] MEDS: sodium chloride 0.9% 1,000 ML 30 ML IV (06:25)
[2022-05-08 06:29] LABS: Glucose Point of Care 286 mg/dL (70-110)
[2022-05-08 06:48] LABS: Basophils % 0.2 %; Eosinophils # 0.1 10^3/uL (0.0-0.8); Eosinophils % 0.7 %; Hematocrit 30.4 % (37.0-47.0); Hemoglobin 9.6 g/dL (11.5-15.3); Lymphocytes # 1.1 10^3/uL (0.8-4.8); Lymphocytes % 9.7 %; Mean Corpuscular HGB Conc 31.6 g/dL (30.0-36.0); Mean Corpuscular Hemoglobin 29.3 pg (28.0-34.0); Mean Corpuscular Volume 92.7 fl (81-99); Mean Platelet Volume 8.9 fL (7.4-10.4); Monocytes % 9.4 %; Neutrophils # 8.64 10^3/uL (1.8-7.7); Neutrophils % 79.5 %; Nucleated Red Blood Cells % 0 %; Platelet Count 396 10^3/cmm (130-400); Red Blood Count 3.28 10^6/uL (4.1-5.3); Red Cell Distribution Width 13.2 % (12.1-15.1); White Blood Count 10.9 10^3/uL (4.0-10.0)
--- NOTE | 2022-05-08 06:56 | W.PM.OPSUD ---
Surgery/Procedure H&P Update DATE OF PROCEDURE: May 08, 2022 DATE H&P PERFORMED: 04/30/22 H&P UPDATE INFORMATION: I have reviewed H&P completed within last 30 days, I have examined patient prior to procedure, No changes to prior documentation and H&P is in [facility] [place] [place] E[place] on date indicated CHANGES TO PREVIOUS DOCUMENTATION: Extended discussion was had with the family and the patient at her previous inpatient admission. She was consented for the surgery and risks and benefits were discussed in detail with her at that time. She was given the option of open reduction internal fixation, but given her multiple medical comorbidities, it was felt that primary ankle fusion would provide her with the most functional extremity and give the most predictable outcome. Patient and family agreed. The patient was consented for the surgical procedure. PREOP DIAGNOSIS: Right trimalleolar ankle fracture PLANNED PROCEDURE: Operation Date: 05/08/22 07:00 Proposed Procedures p Ankle Fusion(Right) - Jazmin Moreira MD Related Problem List Diagnoses (1) Closed right trimalleolar fracture:
[2022-05-08] MEDS: CELEcoxib 200 mg Capsule 400 MG PO (07:00)
[2022-05-08 07:14] LABS: Anion Gap 16.9 (5-19); Blood Urea Nitrogen 42 mg/dL (8-23); Calcium 8.8 mg/dL (8.5-10.5); Carbon Dioxide 23 mmol/L (22-29); Chloride 97 mmol/L (98-107); Glucose 263 mg/dL (65-115); Osmolality Calculated 294 mOsm/kg (285-295); Potassium 4.9 mmol/L (3.5-5.1); Sodium 132 mmol/L (136-145)
[2022-05-08] MEDS: ceFAZolin 2,000 MG in sodium chloride 0.9% (plus) 50 ML 100 MG IV (07:17)
--- NOTE | 2022-05-08 07:17 | ANES.PREANE2 ---
Pre-Anesthetic Assessment Height/Weight: Height 1.6 m Weight 78.471 kg Temp Pulse Resp BP Pulse Ox O2 Del Method 99.2 F 81 15 181/53 95 05/08/22 06:15 05/08/22 06:15 05/08/22 06:15 05/08/22 06:15 05/08/22 06:15 05/08/22 06:21 Preop Diagnosis: Right trimalleolar ankle fracture Operation Date: 05/08/22 07:00 Proposed Procedures p Ankle Fusion(Right) - Jazmin Moreira MD Familial anesthetic complications: None Was Beta Mariano taken within 24 hours: Yes Was Clonidine taken within 24 hours: N/A Last intake: Intake Last Liquid Date 05/07/22 Last Liquid Time 05:30 Last Solid Date 05/07/22 Last Solid Time 05:30 Social No alcohol and No tobacco Exam alert, oriented x 3, clear to auscultation bilaterally and regular rate & rhythm murmur Airway Mallampati: Class IV Dentition: other (very poort dentition) Comments: Comments: Submandibular mass - chronic receding mandible CV/HEM Atrial Fibrillation, Anemia and Hypertension 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 Was told it wasn't getting any bigger over the years, that it wasn't hurting her, and that they wouldn't do anything about it d/t to her age anyway. Patient denies SOB, chest pain. Chronic Renal Insufficiency Metabolic Diabetes Mellitus Neuropsych blindess Anesthetic Plan ASA status: 3 Anesthesia: Regional (specify below) Risk of > 500 ml blood loss (7ml/kg in children): No Other Pertinent Information poor historian - family poor historians as well Medications/Allergies Home Medications Medication Instructions Recorded Confirmed Last Taken Type alendronate 70 mg tablet 70 mg PO Q7D 04/30/22 05/08/22 05/03/22 History amitriptyline 25 mg tablet 25 mg PO BEDTIME 04/30/22 05/08/22 05/08/22 History digoxin 250 mcg (0.25 mg) tablet 250 mcg PO QAM 04/30/22 05/08/22 05/07/22 History ferrous sulfate 325 mg (65 mg 325 mg PO BEDTIME 04/30/22 05/08/22 05/07/22 History iron) tablet (FeroSul) fosinopril 20 mg tablet 20 mg PO QAM 04/30/22 05/08/22 05/08/22 History furosemide 40 mg tablet 20 mg PO QAM 04/30/22 05/08/22 05/08/22 History insulin glargine 100 unit/mL 30 unit SUBCUT BEDTIME 04/30/22 05/07/22 05/07/22 History subcutaneous solution (Lantus U-100 Insulin) latanoprost 0.005 % eye drops 1 drp ophthalmic (eye) BEDTIME 04/30/22 05/08/22 05/07/22 History lovastatin 40 mg tablet 40 mg PO QPM 04/30/22 05/07/22 1 Day Ago History ~05/06/22 metformin 1,000 mg tablet 1,000 mg PO BID 04/30/22 05/08/22 05/07/22 History metoprolol tartrate 25 mg tablet 25 mg PO BEDTIME 04/30/22 05/08/22 05/07/22 History pioglitazone 45 mg tablet 45 mg PO QAM 04/30/22 05/07/22 1 Day Ago History ~05/06/22 potassium chloride 20 mEq 20 meq PO QAM 04/30/22 05/08/22 05/07/22 History tablet,extended release(part/cryst) enoxaparin 30 mg/0.3 mL 30 mg (0.3 mL) SUBCUT DAILY #3 mL 05/01/22 05/07/22 1 Day Ago Rx subcutaneous syringe (Lovenox) ~05/06/22 hydromorphone 2 mg tablet 2 mg PO Q6H PRN pain #12 tabs 05/01/22 05/07/22 1 Day Ago Rx ~05/06/22 Allergies Allergy/AdvReac Type Severity Reaction Status Date / Time loratadine [From Claritin] Allergy ADR/ALGY-Pa Verified 05/08/22 07:15 lpitations Current Medications Generic Name Dose Route Start Last Admin Trade Name Freq PRN Reason Stop Dose Admin Sodium Chloride 1,000 mls @ 30 mls/hr 05/08/22 06:15 05/08/22 06:59 Sodium Chloride 0.9% IV 05/09/22 06:14 30 mls/hr .Q24H DANIEL Administration PFSH Anesthesia Medical History (Updated 04/30/22 @ 18:48 by Jazmin Moreira MD) Diabetes mellitus Hypertension Mass of heart valve Surgical History (Updated 04/30/22 @ 14:00 by Scout Hankins MD) H/O: hysterectomy Family History (Updated 04/30/22 @ 14:00 by Scout Hankins MD) Other Diabetes Hypertension Social History (Updated 04/30/22 @ 14:01 by Scout Hankins MD) Smoking and tobacco status: never smoked Alcohol intake: never Household members: spouse Marital status: Data Anesthesia 05/08/22 06:27 05/08/22 06:27 Short CBC 05/08/22 Range/Units 06:27 WBC 10.9 H (4.0-10.0) 10^3/uL Hgb 9.6 L (11.5-15.3) g/dL Hct 30.4 L (37.0-47.0) % MCV 92.7 (81-99) fl Plt Count 396 (130-400) 10^3/cmm Neut % (Auto) 79.5 % Neut # (Auto) 8.64 H (1.8-7.7) 10^3/uL BMP 05/08/22 06:27 Sodium 132 L Potassium 4.9 Chloride 97 L Carbon Dioxide 23 BUN 42 H Creatinine 1.3 H Glucose 263 H Calcium 8.8 Cardiac Studies: No Data to Display
[2022-05-08 07:25] LABS: INR 1.79 (0.8-1.2)
--- NOTE | 2022-05-08 08:13 | ANES.PROC ---
Anesthesia Procedures Procedure/Date: 05/08/22 Nerve Block ^: Nerve Block 1: Main Anesthesia: spinal anesthesia block Time Out Performed: Yes Consent: requested by attending/covering physician, from patient, from other, risks and benefits reviewed and patient agrees to proceed Nerve block location: popliteal (R) Anesthesia monitors applied: pulse oximetry, EKG, BP cuff and oxygen Nerve block position: supine Anesthetic Used: ropivicaine 0.5% (30 ml) and with decadron (4 mg) Ultrasound used to: recognize landmarks Nerve Stimulator Used?: No Interscalene/Femoral BLK: 4 stimuplex 21 g needle used for position and inplane approach, visualize local anesthetic spread and no vascular puncture identified Injection: neg aspiration of heme and paresthesia +/- Patient Tolerated Procedure: well and no complications Complications: none
--- NOTE | 2022-05-08 09:35 | PM.OP ---
Operative Report Date of procedure: May 08, 2022 Pre-op diagnosis: Right trimalleolar ankle fracture Post-op diagnosis: Right trimalleolar ankle fracture Post-op findings: Very unstable trimalleolar right ankle fracture with soft tissue swelling and medial large fracture blister. Procedure done: Left ankle fusion Implants: The Vern T2 ankle arthrodesis nail, right, size 12 mm x 200 mm with fixation screws through the calcaneus, talus, and tibia. Specimens removed/disposition: None Surgeon: Jazmin Moreira Surgeon: Ward Ricardo Anesthesia: MAC (With spinal, ASA 4, with supplemental popliteal block) Estimated blood loss (mL): 5 Tourniquet time (min): 82 (At 300 mmHg) IV fluids (mL): 600 Urine output (mL): 200 Complications: None Findings: Very unstable right trimalleolar ankle fracture with large fracture blisters medially. Significant soft tissue swelling. Condition: stable Disposition: PACU (Then return to same day surgery for discharge to home.) Brief History: Donita Medina is a 81 year old female who presented to the emergency department with a very unstable right trimalleolar ankle fracture.? 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 Occasionally, she gets disoriented at home, and this did occurred prior to her fall.? She fell down and presented to the emergency department with a displaced trimalleolar right ankle fracture.? Reduction was accomplished in the emergency department and the extremity was splinted.? The patient will require surgical intervention, but secondary to the swelling and medical issues, this was delayed.? The patient presents today for definitive treatment in the form of a primary ankle fusion. This case was discussed with Dr. Ricardo, and we plan to address this together. The patient was aware of our plan as was the family. We gave the option of open reduction internal fixation, but given the patient's bone quality and other medical comorbidities, it was felt that this would only fail. All parties agreed primary fusion was a better option for this patient. Procedure: Patient was seen in the preoperative holding area and leg was marked. Patient was brought to the operating theater and placed on the operating room table. After undergoing adequate spinal anesthesia with MAC, ASA 4, the patient's right lower extremity was prepped and draped in usual fashion utilizing Betadine due to the large fracture blister medially along the distal tibia. The leg was draped free. Fluoroscopy was used throughout the surgical procedure. We placed a tourniquet high on the right lower extremity. This was elevated to 300 mmHg and total tourniquet time was 82 minutes. Tourniquet elevation followed exsanguination of the leg. A surgical pause was performed. At the time of the surgical pause we identified the site and side of surgery as well as the patient's identity and availability of equipment. We also confirmed appropriate administration of IV antibiotics, Ancef 2 g. Fluoroscopy was utilized throughout the case, and initially, lines were drawn along the anterior tibia and along the lateral tibia for reference. Subsequent to this, K wire was placed from the calcaneus into the tibia. Care was taken to assure that the ankle and foot were in appropriate position with appropriate dorsiflexion and valgus positioning. The pin was adjusted as necessary so that we were exactly where we wanted to be. Once the pin was in the appropriate position, we reamed over the pin with fluoroscopic guidance. An exchange tube was used and a longer guidewire was placed. We had previously measured and the 200 mm length nail had been chosen. Reaming was accomplished to a size 13.5 to allow for placement of a 12 mm nail. The nail was then placed over the guidewire again with fluoroscopic guidance. It was inserted to appropriate depth, and position of the nail was confirmed in AP and lateral planes. The talar screw was then placed and was middle of the talus in both AP and lateral planes. At that point, we directed attention more proximally. We elected to place the nail in the dynamic position with the screw placed through the dynamic guide slot. Once again, the screw was placed without difficulty utilizing the jogging system. Following this, attention was directed to the calcaneus, and again, the jig was used to place a screw through the nail in appropriate position. Again, confirmation of appropriate screw position was made in AP and lateral planes. 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 The jig system was removed after we confirmed all screws were in appropriate position. Screw lengths included 5.0 mm x 27 mm and 5.0 mm x 42 mm fully threaded screws. There was a partially threaded 5.0 mm x 35 mm screw as well. The jig system was removed and further imaging was accomplished in AP and lateral planes. We confirmed that all screws were through the nail, and attention at that time was directed to closure. The wounds were irrigated. Closure was accomplished with 2-0 Monocryl in the subcutaneous tissues, and the skin was closed with 3-0 nylon overall the incisions. The large fracture blister was debrided. This was then covered with Xeroform gauze. The remainder of the skin incisions which were closed with nylon as noted were covered with Xeroform gauze as well. This was followed by 4 x 4's. Soft roll was used to hold the dressings in place and a large Gaston style dressing was placed with thick cotton followed by sterile soft roll. We then placed a posterior splint wrapped in place by an Teddy wrap. The tourniquet was released after 82 minutes. The procedure was well-tolerated without complication. The patient was to be discharged to the skilled facility where she had been residing, but decision was made to maintain patient in hospital after it was determined that the patient's INR preoperatively was 1.7+, and she was administered spinal anesthetic. Confirmation INR was obtained prior to admitting the patient and was 1.8+. For safety and monitoring of neurologic status, the patient will be admitted to the hospitalist team overnight and discharged back to her skilled facility hopefully in the morning. She will be evaluated by them for any other medical comorbidities. Related Problem List Diagnoses (1) Closed right trimalleolar fracture: (2) Partial blindness: (3) Elevated INR:
--- NOTE | 2022-05-08 09:37 | XR_ITS ---
WS: [id number] Exam: XR ankle RT 1V [id number] Date/Time of Exam: 05/08/2022 9:38 AM Reason For Exam: OR PICS AP and lateral intraoperative C-arm images of the right ankle are submitted. Arthrodesis of the ankle mortise with an intramedullary filiberto coursing through the lower tibia, talus a nd calcaneus is noted. Position appears to be satisfactory. Again noted is a comminuted fracture of t he lower metadiaphysis of the fibula without significant displacement. Medial malleolar fracture as p reviously noted. Soft tissue swelling about the ankle.
--- NOTE | 2022-05-08 10:50 | PC.NURSE ---
Report form Tanya FERRELL from PACU
--- NOTE | 2022-05-08 11:19 | PC.NURSE ---
oxygen 2 l/min placed on patient. Sats were dropping to 88% Client eating crackers and diet sprite.
--- NOTE | 2022-05-08 11:45 | PC.NURSE ---
oxygen taken off sats = 95%
--- NOTE | 2022-05-08 12:07 | PC.NURSE ---
Dr. Moreira and Dr. Stern in to talk with patient and family. Will draw lab before deciding to keep patient for observation.
--- NOTE | 2022-05-08 12:25 | PC.NURSE ---
oxygen drops to 88/89 % oxygen 2 liters placed back on patient
[2022-05-08 12:47] LABS: INR 1.83 (0.8-1.2)
--- NOTE | 2022-05-08 12:52 | SUR.PHASEII ---
1231 another pt/inr drawn per 1250 pt/inr resulted and Dr. Moreira and Dr Santoyo(anesthesiologist) made aware of these results higher than earlier this arm
--- NOTE | 2022-05-08 13:08 | PM.MISC ---
Miscellaneous Note Note: Spoke with patient, family, surgeon, and hospitalist regarding admission/observation for frequent neuro checks after patient's spinal in setting of INR 1.8. Questions answered. Family and patient in agreement with admisssion. Patient's spinal has regressed and she is intact to light touch in both lower extremities, able to wiggle her L toes, (R side received popliteal nerve block and so residual deficits in R lower leg expected). She has baseline weakness, but is stating he feels her lower extremities are at their baseline strength.
--- NOTE | 2022-05-08 13:27 | ANE.PACU2 ---
Inpatient post-anesthesia follow up: Airway intact: Yes Vital signs: Temperature 98.3 F Pulse Rate 71 Respiratory Rate 16 Blood Pressure 186/74 Pulse Oximetry 93 Oxygen Delivery Me thod Room Air Oxygen Flow Rate 2 Fraction of Inspir ed Oxygen 2 Hydration adequate: Yes Nausea and vomiting: No Pain level: 1 Mental status: Baseline
--- NOTE | 2022-05-08 14:03 | PC.NURSE ---
Report called to Carol on Med Surg floor. Patient will be going to room 269.
--- NOTE | 2022-05-08 15:26 | P.CONIM_ITS ---
Providers/Reason For Consult Consulting Physician/Specialty*: Orthopedic Reason for Consult*: Elevated INR Attending Physician: Jazmin Moreira MD Primary Care Provider: Kassidy Delarosa History of Present Illness History of Present Illness Donita Medina is a 81 year old female with a past medical history of atrial fibrillation, digoxin, and on Coumadin, currently on hold for surgery, insulin- dependent type 2 diabetes mellitus, hypertension, who presents [facility] surgery for right trimalleolar ankle fracture, status post ankle fusion. Patient was noticed to have an elevated INR 1.83. She had a spinal anesthesia block, and there is worries of her developing an epidural hematoma, currently she is neurologically intact but surgical services 1 patient to be admitted for neurochecks and monitoring. Currently patient is alert oriented x3, she follows commands, denies any back pain, can wiggle her toes, her sensations on her right and left on my examination were equal, to light touch, and she has movement in both lower extremities, her right foot is in a boot limiting her mobility. She tells me she is not sure what medication she takes, she thinks she takes Couma din but she is not sure if she has been taking it anymore she tells me to talk to her daughter about all her medications, she denies a history of bleeding, she denies a cardiovascular history except atrial fibrillation, denies a history of strokes, no history history of blood clots. I spoke to pharmacy and confirmed that she takes Coumadin through Dr. Guillermo's office it was held on her hospital discharge few days ago but her INR during that admission was normal Review of Systems Const: Denies: fever(s) Card: Denies: chest pain Resp: Denies: dyspnea GI: Denies: abdominal pain : Denies: flank pain Musc: Denies: back pain Skin/Breast: Denies: rash Neuro: Denies: headache(s), numbness in extremities, weakness in extremities or sensory changes Medications/Allergies Home Medications Medication Instructions Recorded Confirmed Last Taken Type alendronate 70 mg tablet 70 mg PO Q7D 04/30/22 05/08/22 05/03/22 History amitriptyline 25 mg tablet 25 mg PO BEDTIME 04/30/22 05/08/22 05/08/22 History digoxin 250 mcg (0.25 mg) tablet 250 mcg PO QAM 04/30/22 05/08/22 05/07/22 History ferrous sulfate 325 mg (65 mg 325 mg PO BEDTIME 04/30/22 05/08/22 05/07/22 History iron) tablet (FeroSul) fosinopril 20 mg tablet 20 mg PO QAM 04/30/22 05/08/22 05/08/22 History furosemide 40 mg tablet 20 mg PO QAM 04/30/22 05/08/22 05/08/22 History insulin glargine 100 unit/mL 30 unit SUBCUT BEDTIME 04/30/22 05/07/22 05/07/22 History subcutaneous solution (Lantus U-100 Insulin) latanoprost 0.005 % eye drops 1 drp ophthalmic (eye) BEDTIME 04/30/22 05/08/22 05/07/22 History lovastatin 40 mg tablet 40 mg PO QPM 04/30/22 05/07/22 1 Day Ago History ~05/06/22 metformin 1,000 mg tablet 1,000 mg PO BID 04/30/22 05/08/22 05/07/22 History metoprolol tartrate 25 mg tablet 25 mg PO BEDTIME 04/30/22 05/08/22 05/07/22 History pioglitazone 45 mg tablet 45 mg PO QAM 04/30/22 05/07/22 1 Day Ago History ~05/06/22 potassium chloride 20 mEq 20 meq PO QAM 04/30/22 05/08/22 05/07/22 History tablet,extended release(part/cryst) enoxaparin 30 mg/0.3 mL 30 mg (0.3 mL) SUBCUT DAILY #3 mL 05/01/22 05/07/22 1 Day Ago Rx subcutaneous syringe (Lovenox) ~05/06/22 hydromorphone 2 mg tablet 2 mg PO Q6H PRN pain #12 tabs 05/01/22 05/07/22 1 Day Ago Rx ~05/06/22 oxycodone 5 mg tablet 5 mg PO Q4H PRN pain 7 days #30 05/08/22 Unknown Rx tabs Allergies Allergy/AdvReac Type Severity Reaction Status Date / Time loratadine [From Claritin] Allergy ADR/ALGY-Pa Verified 05/08/22 07:15 lpitations PFSH Acute PFSH: Medical History (Updated 05/08/22 @ 15:55 by Roman Hui MD) Diabetes mellitus Hypertension Mass of heart valve Surgical History H/O: hysterectomy Family History Other Diabetes Hypertension Social History Smoking and tobacco status: never smoked Alcohol intake: never Household members: spouse Marital status: Vitals/I&O/Wt Last Vital Signs Temp 98.3 F 05/08/22 10:58 Pulse 81 05/08/22 14:08 Resp 16 05/08/22 14:08 BP 183/61 05/08/22 14:08 Pulse Ox 97 05/08/22 14:38 O2 Del Method 05/08/22 14:38 O2 Flow Rate 2 05/08/22 14:38 FiO2 2 05/08/22 11:15 05/08/22 05/08/22 05/08/22 06:59 14:59 22:59 Intake Total 100 / 100 650 / 650 Output Total 205 / 205 Balance 100 / 100 445 / 445 Weight last 48 hrs Weight 78.471 kg Physical Exam Const: COMMON NORMALS: no acute distress and patient oriented x3 Eye: COMMON NORMALS: Equal, round and reactive pupils present PUPIL: Yes Equal, round and reactive pupils present Neck/C-Spine: COMMON NORMALS: full ROM and no lymphadenopathy Resp: COMMON NORMALS: normal respiratory effort, No retractions, No use of accessory muscles and clear to auscultation bilaterally AUSCULTATION: clear t o auscultation bilaterally Cardio: COMMON NORMALS: regular rate, regular rhythm, S1 normal heart sound present and S2 normal heart sound present RATE: regular rate RHYTHM: regular rhythm HEART SOUNDS: S1 normal heart sound present and S2 normal heart sound present GI: COMMON NORMALS: Normal to inspection, nondistended, normoactive bowel sounds present and non-tender Extremity: COMMON NORMALS: no pedal edema Neuro: COMMON NORMALS: patient oriented x3, CN's II-XII intact bilaterally, moves all extremities, no focal motor deficits and no sensory deficits noted Psych: COMMON NORMALS: mental status grossly normal Data 05/08/22 06:27 05/08/22 06:27 A&P Assessment and plan (1) Elevated INR: (2) Closed right trimalleolar fracture: (3) Diabetes mellitus: (4) Hypertension: (5) Atrial fibrillation: (6) JAMES (acute kidney injury): (7) Mass of heart valve: Plan Right trimalleolar ankle fracture -Status post ankle fusioby Dr. Moreira -morphine for pain control -pt ot -scd for dvt prophylaxis -therapeuatic anticoagulation on hold for concerns for elevated INR, risk of developing epidural bleed/hematoma INR 1.8 -She takes Coumadin for atrial fibrillation below is her schedule -5mg po in the am on wed,,wed,wed and wed and 7.5mg po in the am on wed and -she was on coumadin, was supposed to be held on last hospital discharge 05/01/2022 [email or web address] it seems as if Coumadin was not stopped, and she did take 7.5 mg yesterday -monitor INR -will hold on ffp or vitamin k or imaging -if she becomes symptomatic then will order reversal agent and work up Atrial fibrillation, continue digoxin, continue Coumadin Type 2 diabetes mellitus, low-dose sliding scale Mass on heart valve we will do a cardiac echocardiogram Patient is okay with CPR but she does not want to be intubated Consult Attestations Medical Necessity Statement: Patient requires hospitalization, for elevated INR, recent history of spinal epidural Coding Level of Care Code Acute Code for Chg Fwd Diagnoses Elevated INR R79.1 Closed right trimalleolar fracture S82.851A Diabetes mellitus E11.9 Hypertension I10 Atrial fibrillation I48.91 JAMES (acute kidney injury) N17.9 Mass of heart valve I51.89
--- NOTE | 2022-05-08 15:55 | USCV_ITS ---
Donita Medina Age: 81 Gender: F : 1940 Exam Date: 05/08/2022 17:24 Ordering Phys: Roman Hui MD Technologist: [place] [facility] [place] Indication: mass heart valve BP: / HR: Rhythm: Sinus Technical Quality: Adequate MEASUREMENTS (Male / Female) Normal Values FINDINGS Left Ventricle Left ventricle is normal in size. LV systolic function is normal with EF 55 to 60%. No regional wall motion abnormalities are seen. Grade 1 diastolic dysfunction Right Ventricle Normal in size and function Right Atrium Normal in size. Interatrial septal aneurysm. Left Atrium Normal in size Mitral Valve Moderate mitral annular calcification. Aortic Valve Aortic valve is thickened with limited visualization. Moderate aortic stenosis with ARTURO of 1.10cm2 and mean gradient of 22mmHg Tricuspid Valve Not well visualized. Mild tricuspid regurgitation. Insufficient TR jet to calculate RVSP Pulmonic Valve Not well visualized Pericardium Normal Aorta Normal in size IVC Appears to be normal CONCLUSIONS Technically limited quality echocardiogram because of poor ultrasonic windows. LV systolic function is normal with EF 55 to 60%. Grade 1 diastolic dysfunction. Aortic valve is thickened. Moderate aortic stenosis with aortic valve area of 1.1 cm squared with mean gradient of 22 mmHg. Mild tricuspid regurgitation No comparison studies available Danny Garrett MD (Electronically Signed) Final Date: 09 May 2022 11:19 S
--- NOTE | 2022-05-08 16:22 | PC.OT ---
OT Eval Attempted - Patient on bedrest at this time, attempted evaluation at bedside. Patient having difficulty with blood pressure, oxygen, and pain at this time. Patient reported that she was too tired and having too much pain to do an evaluation, patient refused participating in evaluation at this time. Patient reported that she would be agreeable to doing evaluation tomorrow morning.
--- NOTE | 2022-05-08 17:33 | PM.MISC ---
Miscellaneous Note Purpose of Documentation: Postoperative patient visit Note: Patient is seen this evening at approximately 5:30 PM. She is experiencing no changes in her neurovascular status. She is not complaining of numbness or tingling. She has no complaints and will remain for observation until deemed appropriate for discharge back to skilled facility.
[2022-05-08 18:09] LABS: Glucose Point of Care 314 mg/dL (70-110)
[2022-05-08] MEDS: pantoprazole 40 mg SDV IVP (18:27)
[2022-05-08] MEDS: atorvastatin 40 mg Tablet 20 MG PO (18:27)
[2022-05-08] MEDS: insulin lispro 100 unit/1 mL SUBCUT (18:28)
--- NOTE | 2022-05-08 19:56 | PC.NURSE ---
call placed to Dr. Hui inquiring about pt admission status, observation or inpatient, awaiting return call
[2022-05-08] MEDS: ferrous sulfate EC 325 mg Tablet PO (21:18)
[2022-05-08] MEDS: amitriptyline 25 mg Tablet PO (21:18)
[2022-05-08] MEDS: metoprolol tartrate 25 mg Tablet PO (21:18)
[2022-05-08] MEDS: latanoprost 0.005% Op Soln 2.5 mL Btl 1 DROP EYE-LEFT (21:19)
[2022-05-08] MEDS: insulin glargine 100 units/1 mL 15 UNIT SUBCUT (21:38)
[2022-05-08 21:42] LABS: Glucose Point of Care 250 mg/dL (70-110)
[2022-05-09] VITALS (7 sets, daily range): BP systolic 142–146; BP diastolic 57–67; PULSE 66–75; RESP 15–18; TEMP 36.4–37.8; O2SAT 97–99
--- NOTE | 2022-05-09 03:54 | PC.NURSE ---
[employer] offered patient a warm wet wash cloth to clean out pts eyes due to crusting around the eyelids. Patient stated to aid it happens at night time, just leave it alone Will try again later.
[2022-05-09] MEDS: FUROsemide 40 mg Tablet 20 MG PO (05:06)
[2022-05-09] MEDS: digoxin 250 mcg Tablet PO (05:07)
[2022-05-09] MEDS: lisinopril 20 mg Tablet PO (05:07)
[2022-05-09 06:02] LABS: Basophils % 0.3 %; Eosinophils # 0.2 10^3/uL (0.0-0.8); Eosinophils % 2.3 %; Hematocrit 26.2 % (37.0-47.0); Lymphocytes # 1.2 10^3/uL (0.8-4.8); Lymphocytes % 11.9 %; Mean Corpuscular HGB Conc 30.5 g/dL (30.0-36.0); Mean Corpuscular Hemoglobin 28.8 pg (28.0-34.0); Mean Corpuscular Volume 94.2 fl (81-99); Mean Platelet Volume 8.8 fL (7.4-10.4); Monocytes # 0.9 10^3/uL (0.2-0.9); Monocytes % 9.1 %; Neutrophils # 7.89 10^3/uL (1.8-7.7); Neutrophils % 76.1 %; Nucleated Red Blood Cells % 0 %; Platelet Count 352 10^3/cmm (130-400); Red Blood Count 2.78 10^6/uL (4.1-5.3); Red Cell Distribution Width 13.3 % (12.1-15.1); White Blood Count 10.4 10^3/uL (4.0-10.0)
[2022-05-09 06:12] LABS: INR 2.11 (0.8-1.2)
[2022-05-09 06:32] LABS: Alanine Aminotransferase 15 U/L (0-33); Albumin Level 2.9 g/dL (3.5-5.2); Alkaline Phosphatase 47 U/L (35-105); Anion Gap 11.6 (5-19); Aspartate Amino Transferase 21 U/L (0-32); Blood Urea Nitrogen 42 mg/dL (8-23); Calcium 8.7 mg/dL (8.5-10.5); Carbon Dioxide 26 mmol/L (22-29); Chloride 102 mmol/L (98-107); Globulin 3.3 g/dL (1.3-4.6); Glucose 156 mg/dL (65-115); NT Pro B Type Natriuretic Pept 1982 pg/mL (0-450); Osmolality Calculated 294 mOsm/kg (285-295); Potassium 4.6 mmol/L (3.5-5.1); Sodium 135 mmol/L (136-145); Total Bilirubin 0.3 mg/dL (0.15-1.2); Total Protein 6.2 g/dL (6.6-8.7)
[2022-05-09 06:59] LABS: Glucose Point of Care 163 mg/dL (70-110)
[2022-05-09 08:23] LABS: Reticulocyte % 2.9 % (0.5-2.0)
[2022-05-09 08:36] LABS: Ferritin 127 ng/mL (15-150); Iron 12 ug/dL (37-145)
--- NOTE | 2022-05-09 10:49 | P.PN_ITS ---
Subjective Subjective: Patient was seen this morning, she tells me that she chronically has diabetic neuropathy, and she does not have good sensation in her bilateral lower extremities, currently she does not describe decrease in sensation, she can feel both pinprick and dull sensation but they seem equal, which she says is chronic she is able to wiggle her toes, she denies any back pain, she again is not sure if she has been taking Coumadin, she tells me is old up to the residential, Vitals/I&O/Wt Last Vital Signs Temp 98 F 05/09/22 08:00 Pulse 74 05/09/22 08:00 Resp 15 05/09/22 08:00 BP 142/65 05/09/22 08:00 Pulse Ox 98 05/09/22 08:00 O2 Del Method 05/09/22 03:48 O2 Flow Rate 2 05/08/22 23:48 FiO2 2 05/08/22 11:15 05/08/22 05/09/22 05/09/22 22:59 06:59 14:59 Intake Total 0 / 650 360 / 1010 Output Total 375 / 580 Balance 0 / 445 -15 / 430 Weight last 48 hrs Weight 78.471 kg Physical Exam Const: COMMON NORMALS: no acute distress and patient oriented x3 Resp: COMMON NORMALS: normal respiratory effort, No retractions, No use of accessory muscles and clear to auscultation bilaterally AUSCULTATION: clear to auscultation bilaterally Cardio: COMMON NORMALS: regular rate, regular rhythm, S1 normal heart sound present and S2 normal heart sound present RATE: regular rate RHYTHM: regular rhythm HEART SOUNDS: S1 normal heart sound present and S2 normal heart sound present GI: COMMON NORMALS: Normal to inspection, nondistended, normoactive bowel sounds present and non-tender Extremity: COMMON NORMALS: no pedal edema NARRATIVE EXTREMITY EXAM: Right lower extremity, in a boot, able to wiggle her toes, able to feel sensations, dull and pinprick seen the same to her all over the sole of her feet and dorsal aspect Left lower extremity, able to wiggle her toes able to move the left lower extr emity, dull and pinprick sensation seem same to her, all over the sole of her feet, and dorsal aspect Neuro: COMMON NORMALS: patient oriented x3 Psych: COMMON NORMALS: mental status grossly normal Data 05/09/22 05:33 05/09/22 05:33 A&P Assessment and plan (1) Elevated INR: (2) Closed right trimalleolar fracture: (3) Diabetes mellitus: (4) Hypertension: (5) Atrial fibrillation: (6) JAMES (acute kidney injury): (7) Mass of heart valve: Plan Right trimalleolar ankle fracture -Status post ankle fusioby Dr. Moreira -morphine for pain control -pt ot -scd for dvt prophylaxis -INR 2.0, likely the effect of Coumadin therapy, hold DVT prophylaxis INR 1.8, INR today 2.11 -She takes Coumadin for atrial fibrillation below is her schedule -5mg po in the am on wed,,wed,wed and wed and 7.5mg po in the am on wed and -she was on coumadin, was supposed to be held on last hospital discharge 05/01[facility]2022 [facility] seems as if Coumadin was not stopped, and she did take 7.5 mg yesterday -monitor INR -will hold on ffp or vitamin k or imaging as she is relatively asymptomatic and its been about almost 24 hours since her surgery -if she becomes symptomatic then will order reversal agent and work up Atrial fibrillation, continue digoxin, continue Coumadin, INR 2.0 Type 2 diabetes mellitus, low-dose sliding scale Mass on heart valve we will do a cardiac echocardiogram JAMES creatinine 1.6, monitor, gentle IV hydration 50 cc Evidence of iron deficiency anemia iron 12 ferritin 127, 1 dose IV Venofer here Anemia hemoglobin 8 point 0 repeat hemoglobin in the afternoon Elevated BNP no shortness of breath complaints monitor Patient is okay with CPR but she does not want to be intubated Attestations Medical Necessity Statement*: Patient requires hospitalization for right trimalleolar ankle fracture with elevated INR, anemia, elevated INR, JAMES 1.6 Coding Level of Care Code Acute Code for g Fwd Diagnoses Elevated INR R79.1 Closed right trimalleolar fracture S82.851A Diabetes mellitus E11.9 Hypertension I10 Atrial fibrillation I48.91 JAMES (acute kidney injury) N17.9 Mass of heart valve I51.89
[2022-05-09 11:42] LABS: Glucose Point of Care 150 mg/dL (70-110)
[2022-05-09] MEDS: pantoprazole 40 mg SDV IVP ×2 (12:05→22:44)
[2022-05-09] MEDS: sucralfate 1 gm Tablet PO ×2 (12:05→22:04)
[2022-05-09] MEDS: iron sucrose 200 MG in sodium chloride 0.9% (100 ml) 100 ML 220 MG IV (12:06)
[2022-05-09] MEDS: insulin lispro 100 unit/1 mL SUBCUT ×2 (12:06→17:46)
[2022-05-09 13:24] LABS: Basophils % 0.3 %; Eosinophils # 0.4 10^3/uL (0.0-0.8); Eosinophils % 3.6 %; Hemoglobin 8.8 g/dL (11.5-15.3); Lymphocytes # 1.2 10^3/uL (0.8-4.8); Lymphocytes % 12.3 %; Mean Corpuscular HGB Conc 31.4 g/dL (30.0-36.0); Mean Corpuscular Hemoglobin 29.8 pg (28.0-34.0); Mean Corpuscular Volume 94.9 fl (81-99); Mean Platelet Volume 8.8 fL (7.4-10.4); Monocytes # 0.8 10^3/uL (0.2-0.9); Monocytes % 8.4 %; Neutrophils # 7.46 10^3/uL (1.8-7.7); Neutrophils % 75.1 %; Nucleated Red Blood Cells % 0 %; Platelet Count 341 10^3/cmm (130-400); Red Blood Count 2.95 10^6/uL (4.1-5.3); Red Cell Distribution Width 13.2 % (12.1-15.1); White Blood Count 9.9 10^3/uL (4.0-10.0)
[2022-05-09 13:37] LABS: INR 2.44 (0.8-1.2)
[2022-05-09] MEDS: sodium chloride 0.9% 1,000 ML 50 ML IV (14:53)
--- NOTE | 2022-05-09 15:12 | PC.PT ---
per discussion with Dr Hui, he recommended cancel PT orders 12:30 PM
--- NOTE | 2022-05-09 17:03 | ANE.PACU2 ---
Inpatient post-anesthesia follow up: Airway intact: Yes Vital signs: Temperature 100.0 F Pulse Rate 75 Respiratory Rate 18 Blood Pressure 144/66 Pulse Oximetry 98 Oxygen Delivery Me thod Nasal Cannula Oxygen Flow Rate 2 Fraction of Inspir ed Oxygen 2 Hydration adequate: Yes Nausea and vomiting: No Pain level: 1 Mental status: Baseline Additional Comments: Patient still with intact sensation and motor strength, no pain, no loss of bowel control, patient has dudley catheter
[2022-05-09 17:14] LABS: Glucose Point of Care 227 mg/dL (70-110)
[2022-05-09] MEDS: atorvastatin 40 mg Tablet 20 MG PO (17:36)
[2022-05-09] MEDS: ferrous sulfate EC 325 mg Tablet PO (20:45)
[2022-05-09] MEDS: amitriptyline 25 mg Tablet PO (20:45)
[2022-05-09] MEDS: metoprolol tartrate 25 mg Tablet PO (20:45)
[2022-05-09] MEDS: latanoprost 0.005% Op Soln 2.5 mL Btl 1 DROP EYE-LEFT (21:00)
[2022-05-09] MEDS: insulin glargine 100 units/1 mL 15 UNIT SUBCUT (21:00)
[2022-05-09 21:01] LABS: Glucose Point of Care 170 mg/dL (70-110)
[2022-05-10] VITALS (10 sets, daily range): BP systolic 132–164; BP diastolic 44–66; PULSE 59–85; RESP 16–18; TEMP 36.5–37.9; O2SAT 92–99
[2022-05-10] MEDS: lisinopril 20 mg Tablet PO (05:05)
[2022-05-10] MEDS: digoxin 250 mcg Tablet PO (05:05)
[2022-05-10] MEDS: FUROsemide 40 mg Tablet 20 MG PO (05:06)
[2022-05-10 05:53] LABS: INR 1.88 (0.8-1.2)
[2022-05-10 06:10] LABS: Anion Gap 11.5 (5-19); Blood Urea Nitrogen 34 mg/dL (8-23); Calcium 8.7 mg/dL (8.5-10.5); Carbon Dioxide 27 mmol/L (22-29); Chloride 102 mmol/L (98-107); Glucose 122 mg/dL (65-115); NT Pro B Type Natriuretic Pept 1203 pg/mL (0-450); Osmolality Calculated 291 mOsm/kg (285-295); Potassium 4.5 mmol/L (3.5-5.1); Sodium 136 mmol/L (136-145)
[2022-05-10 06:16] LABS: Basophils % 0.4 %; Eosinophils # 0.4 10^3/uL (0.0-0.8); Eosinophils % 5.4 %; Hematocrit 24.9 % (37.0-47.0); Hemoglobin 7.7 g/dL (11.5-15.3); Lymphocytes # 1.1 10^3/uL (0.8-4.8); Mean Corpuscular HGB Conc 30.9 g/dL (30.0-36.0); Mean Corpuscular Hemoglobin 29.2 pg (28.0-34.0); Mean Corpuscular Volume 94.3 fl (81-99); Mean Platelet Volume 8.9 fL (7.4-10.4); Monocytes % 11.9 %; Neutrophils # 5.65 10^3/uL (1.8-7.7); Neutrophils % 68.7 %; Nucleated Red Blood Cells % 0 %; Platelet Count 335 10^3/cmm (130-400); Red Blood Count 2.64 10^6/uL (4.1-5.3); Red Cell Distribution Width 13.3 % (12.1-15.1); White Blood Count 8.2 10^3/uL (4.0-10.0)
[2022-05-10 07:28] LABS: Glucose Point of Care 144 mg/dL (70-110)
[2022-05-10] MEDS: pantoprazole 40 mg SDV IVP ×2 (10:58→23:08)
[2022-05-10] MEDS: sucralfate 1 gm Tablet PO ×2 (10:58→22:16)
[2022-05-10] MEDS: iron sucrose 200 MG in sodium chloride 0.9% (100 ml) 100 ML 220 MG IV (10:58)
[2022-05-10] MEDS: enoxaparin 40 mg/0.4 mL Syringe SUBCUT (10:58)
[2022-05-10 11:58] LABS: Glucose Point of Care 266 mg/dL (70-110)
[2022-05-10] MEDS: insulin lispro 100 unit/1 mL SUBCUT ×2 (12:12→17:50)
--- NOTE | 2022-05-10 12:46 | P.PN_ITS ---
Subjective Subjective: Patient was seen this morning, she tells me that the Wade catheter is bothering her, she feels weak, she is wondering when [facility] can [facility] to [facility] Vitals/I&O/Wt Last Vital Signs Temp 98.4 F 05/10/22 12:00 Pulse 85 05/10/22 12:00 Resp 17 05/10/22 12:00 BP 132/55 05/10/22 12:00 Pulse Ox 97 05/10/22 12:00 O2 Del Method 05/10/22 04:00 O2 Flow Rate 2 05/10/22 04:00 FiO2 2 05/08/22 11:15 05/09/22 05/10/22 05/10/22 22:59 06:59 14:59 Intake Total 350 / 350 Output Total 1400 / 1400 Balance -1050 / -1050 Physical Exam Const: COMMON NORMALS: no acute distress and patient oriented x3 Resp: COMMON NORMALS: normal respiratory effort, No retractions, No use of ac cessory muscles and clear to auscultation bilaterally AUSCULTATION: clear to auscultation bilaterally Cardio: COMMON NORMALS: regular rate, regular rhythm, S1 normal heart sound present and S2 normal heart sound present RATE: regular rate RHYTHM: regular rhythm HEART SOUNDS: S1 normal heart sound present and S2 normal heart sound present GI: COMMON NORMALS: Normal to inspection, nondistended, normoactive bowel sounds present and non-tender Extremity: COMMON NORMALS: no pedal edema NARRATIVE EXTREMITY EXAM: Right lower extremity in the binder Neuro: COMMON NORMALS: patient oriented x3 Psych: COMMON NORMALS: mental status grossly normal Data 05/10/22 04:53 05/10/22 04:53 Micro: Microbiology 05/09/22 23:40 Occult Blood (FIT) - Final Stool Routine Collection A&P Assessment and plan (1) Elevated INR: (2) Closed right trimalleolar fracture: (3) Diabetes mellitus: (4) Hypertension: (5) Atrial fibrillation: (6) JAMES (acute kidney injury): (7) Mass of heart valve: (8) GI bleed: Plan Right trimalleolar ankle fracture -Status post ankle fusioby Dr. Moreira -morphine for pain control -pt ot -scd for dvt prophylaxis -INR 1.88, likely the effect of Coumadin therapy, hold DVT prophylaxis INR 1.88 -She takes Coumadin for atrial fibrillation below is her schedule -5mg po in the am on mon,,wed,wed and sat and 7.5mg po in the am on wed and -she was on coumadin, was supposed to be held on last hospital discharge 05/01[facility]2022 [facility] it seems as if Coumadin was not stopped, and she did take 7.5 mg yesterday -monitor INR -will hold on ffp or vitamin k or imaging as she is relatively asymptomatic and its been about almost 48 hours since her surgery -if she becomes symptomatic then will order reversal agent and work up Atrial fibrillation, continue digoxin, Coumadin on hold, INR 1.88 Type 2 diabetes mellitus, low-dose sliding scale Mass on heart valve we will do a cardiac echocardiogram JAMES creatinine 1.6, monitor, gentle IV hydration 50 cc Evidence of iron deficiency anemia iron 12 ferritin 127, 1 dose IV Venofer here Anemia, evidence of iron deficiency, Hemoccult positive stools, certainly this will be difficult in terms of her anticoagulation -For now continue DVT prophylaxis Lovenox -IV Venofer -Monitor hemoglobin -Protonix, Carafate GI bleed, with anemia, Hemoccult positive stools, indicated of GI bleed, monitor hemoglobin closely, Protonix, Carafate Elevated BNP no shortness of breath complaints monitor Patient is okay with CPR but she does not want to be intubated Attestations Medical Necessity Statement*: Patient requires hospitalization for elevated INR, anemia, GI bleed Coding Level of Care Code Acute Code for Chg Fwd Exam Detailed Diagnoses Elevated INR R79.1 Closed right trimalleolar fracture S82.851A Diabetes mellitus E11.9 Hypertension I10 Atrial fibrillation I48.91 JAMES (acute kidney injury) N17.9 Mass of heart valve I51.89 GI bleed K92.2
[2022-05-10 14:22] LABS: Basophils % 0.4 %; Eosinophils # 0.4 10^3/uL (0.0-0.8); Eosinophils % 4.8 %; Hemoglobin 7.7 g/dL (11.5-15.3); Lymphocytes # 1.1 10^3/uL (0.8-4.8); Lymphocytes % 12.9 %; Mean Corpuscular HGB Conc 30.8 g/dL (30.0-36.0); Mean Corpuscular Hemoglobin 28.8 pg (28.0-34.0); Mean Corpuscular Volume 93.6 fl (81-99); Mean Platelet Volume 8.6 fL (7.4-10.4); Monocytes % 11.7 %; Neutrophils # 5.94 10^3/uL (1.8-7.7); Neutrophils % 69.5 %; Nucleated Red Blood Cells % 0 %; Platelet Count 323 10^3/cmm (130-400); Red Blood Count 2.67 10^6/uL (4.1-5.3); Red Cell Distribution Width 13.1 % (12.1-15.1); White Blood Count 8.5 10^3/uL (4.0-10.0)
[2022-05-10 17:46] LABS: Glucose Point of Care 243 mg/dL (70-110)
[2022-05-10] MEDS: atorvastatin 40 mg Tablet 20 MG PO (17:50)
[2022-05-10 20:29] LABS: Glucose Point of Care 265 mg/dL (70-110)
[2022-05-10] MEDS: sodium chloride 0.9% 1,000 ML 50 ML IV (21:05)
[2022-05-10] MEDS: ferrous sulfate EC 325 mg Tablet PO (21:05)
[2022-05-10] MEDS: metoprolol tartrate 25 mg Tablet PO (21:06)
[2022-05-10] MEDS: latanoprost 0.005% Op Soln 2.5 mL Btl 1 DROP EYE-LEFT (21:06)
[2022-05-10] MEDS: amitriptyline 25 mg Tablet PO (21:06)
[2022-05-10] MEDS: insulin glargine 100 units/1 mL 15 UNIT SUBCUT (21:06)
[2022-05-11] VITALS (11 sets, daily range): BP systolic 135–163; BP diastolic 47–77; PULSE 67–96; RESP 16–18; TEMP 35.7–37.1; O2SAT 93–98
[2022-05-11] MEDS: diphenhydrAMINE 25 mg Capsule PO (01:25)
[2022-05-11 02:47] LABS: Basophils % 0.3 %; Eosinophils # 0.4 10^3/uL (0.0-0.8); Eosinophils % 4.8 %; Hematocrit 23.4 % (37.0-47.0); Hemoglobin 7.2 g/dL (11.5-15.3); Lymphocytes # 1.2 10^3/uL (0.8-4.8); Mean Corpuscular HGB Conc 30.8 g/dL (30.0-36.0); Mean Corpuscular Volume 94.4 fl (81-99); Mean Platelet Volume 8.5 fL (7.4-10.4); Monocytes % 12.3 %; Neutrophils # 5.22 10^3/uL (1.8-7.7); Neutrophils % 66.5 %; Nucleated Red Blood Cells % 0 %; Platelet Count 298 10^3/cmm (130-400); Red Blood Count 2.48 10^6/uL (4.1-5.3); Red Cell Distribution Width 13.2 % (12.1-15.1); White Blood Count 7.9 10^3/uL (4.0-10.0)
[2022-05-11 03:00] LABS: INR 1.38 (0.8-1.2)
[2022-05-11 03:14] LABS: Anion Gap 12.4 (5-19); Blood Urea Nitrogen 27 mg/dL (8-23); Calcium 8.3 mg/dL (8.5-10.5); Carbon Dioxide 25 mmol/L (22-29); Chloride 101 mmol/L (98-107); Glucose 175 mg/dL (65-115); NT Pro B Type Natriuretic Pept 1898 pg/mL (0-450); Osmolality Calculated 287 mOsm/kg (285-295); Potassium 4.4 mmol/L (3.5-5.1); Sodium 134 mmol/L (136-145)
[2022-05-11] MEDS: digoxin 250 mcg Tablet PO (05:56)
[2022-05-11] MEDS: FUROsemide 40 mg Tablet 20 MG PO (05:56)
[2022-05-11] MEDS: lisinopril 20 mg Tablet PO (05:56)
[2022-05-11 09:14] LABS: Glucose Point of Care 150 mg/dL (70-110)
[2022-05-11 10:08] LABS: SARS Covid-2 Antigen negative (Negative)
--- NOTE | 2022-05-11 10:36 | P.DS_ITS ---
Discharge Providers Date of Admission: 05/08/22 14:11 Date of Discharge: May 11, 2022 Attending Provider at Admission: Jazmin Moreira MD Attending Provider at Discharge: Roman Hui MD Primary Care Provider: Kassidy Delarosa Diagnoses at Discharge Discharge Diagnosis (1) Elevated INR: Status: Acute (2) Closed right trimalleolar fracture: Status: Acute (3) Diabetes mellitus: Status: Acute (4) Hypertension: Status: Acute (5) Atrial fibrillation: Status: Acute (6) JAMES (acute kidney injury): Status: Acute (7) Mass of heart valve: Status: Acute (8) GI bleed: Status: Acute Reason for Visit Reason for Visit: ankle fx Hospital Course Hospital Course Donita Medina is a 81 year old female with a past medical history of atrial fibrillation, digoxin, and on Coumadin, currently on hold for surgery, insulin- dependent type 2 diabetes mellitus, hypertension, who presents [facility] surgery for right trimalleolar ankle fracture, status post ankle fusion.? Patient was noticed to have an elevated INR 1.83.? She had a spinal anesthesia block, and there is worries of her developing an epidural hematoma, currently she is neurologically intact but surgical services 1 patient to be admitted for neurochecks and monitoring.? Currently patient is alert oriented x3, she follows commands, denies any back pain, can wiggle her toes, her sensations on her right and left on my examination were equal, to light touch, and she has movement in both lower extremities, her right foot is in a boot limiting her mobility.? She tells me she is not sure what medication she takes, she thinks she takes Coumadin but she is not sure if she has been taking it anymore she tells me to talk to her daughter about all her medications, she denies a history of bleeding, she denies a cardiovascular history except atrial fibrillation, denies a history of strokes, no history history of blood clots.? I spoke to pharmacy and confirmed that she takes Coumadin through Dr. Guillermo's office it was held on her hospital discharge few days ago but her INR during that admission was normal Patient was admitted to [facility] due to concerns for elevated INR, as high as 2, likely secondary to the effect of Coumadin, and recent history of epidural, concerns for potentially developing a epidural hematoma she is monitored as inpatient, she continued have mobility in her bilateral extremity, she has chronic neuropathy of bilateral lower extremity, diabetic, she does not have the ability to distinguish pinprick from dull sensation, loss of temperature sensation, but she did not report any gross loss of or change of her sensation, no back pain. She was monitored for over 72 hours as inpatient, no changes in her sensation, no changes her mobility, no new onset back pain, INR on discharge 1.3. Patient developed acute anemia, hemoglobin was as low 7.2, with Hemoccult positive stools, evidence of iron deficiency anemia during hospitalization, likely acute on chronic slow GI bleed. No hemodynamic compromise, no grossly bloody or black stools. She will be transfused 1 unit PRBC prior to discharge. I will have her half-way recheck her hemoglobin tomorrow. Monitor for bloody or black stools. Discontinue Coumadin for now on discharge, decision to advance to will depend on work-up for GI bleed I had an extensive discussion with patient about anticoagulation. She has a history of atrial fibrillation, for which she takes Coumadin for which we are holding, has a risk of developing CVAs.. In addition now she is quite immobilized for her ankle fracture and is bedridden and has a high risk of developing DVTs. Unfortunately this is a difficult situation as she has developed iron deficiency anemia, Hemoccult positive stools, evidence of slow GI bleed, requiring transfusion. Reportedly there is no perfect decision, on the one hand if we resume anticoagulation, and I had managed her actually just on Lovenox for DVT prophylaxis, her Coumadin was held and should her hemoglobin drop to 7.2. This all indicates a slow GI bleed, thus on the one hand she if she can develop significant anemia GI bleed and morbidity or mentality associated. On the other hand she has a risk of DVTs and PE and hypercoagulable in and a CVA. Currently she has a high risk of developing a GI bleed so I am going to hold her Coumadin. But given her immobility from her ankle fracture I do think that she has a risk of developing a DVT on DVT prophylaxis Lovenox unfortunately has caused significant anemia so I do not think that that would be an option thus I will discharge her at least on aspirin 81 mg, instructions to the half-way for her to keep mobile. And to monitor for signs of DVT and PE if so go to emergency room. Were going to continue to hold Coumadin understanding the risk of CVA, and decision to resume based upon work-up of anemia Physical Exam Const: COMMON NORMALS: no acute distress and patient oriented x3 Resp: COMMON NORMALS: normal respiratory effort, No retractions, No use of accessory muscles and clear to auscultation bilaterally AUSCULTATION: clear to auscultation bilaterally Cardio: COMMON NORMALS: regular rate, regular rhythm, S1 normal heart sound present and S2 normal heart sound present RATE: regular rate RHYTHM: regular rhythm HEART SOUNDS: S1 normal heart sound present and S2 normal heart sound present GI: COMMON NORMALS: Normal to inspection, nondistended, normoactive bowel sounds present and non-tender Extremity: COMMON NORMALS: no pedal edema Neuro: COMMON NORMALS: patient oriented x3 Psych: COMMON NORMALS: mental status grossly normal Discharge Data Studies Completed and Pending Completed Studies During Hospitalization Category Date Time Status XR ankle RT 1V [id number] Routine Exams 05/08/22 09:37 Completed CV. echo w/w bubble cont [id number] Routine Ultrasound 05/08/22 15:55 Completed Pending at discharge Category Date Time Status Basic Metabolic Panel AM LABS Lab 05/12/22 04:00 Ordered Complete Blood Count w/Auto AM LABS Lab 05/12/22 04:00 Ordered NT Pro B Type Natriuretic Pept QAM Lab 05/12/22 06:00 Ordered Prothrombin Time INR AM LABS Lab 05/12/22 04:00 Ordered Laboratory Results WBC 7.9 10^3/uL (4.0-10.0) 05/11/22 02:32 RBC 2.48 10^6/uL (4.1-5.3) L 05/11/22 02:32 Hgb 7.2 g/dL (11.5-15.3) L 05/11/22 02:32 Hct 23.4 % (37.0-47.0) L 05/11/22 02:32 MCV 94.4 fl (81-99) 05/11/22 02:32 MCH 29.0 pg (28.0-34.0) 05/11/22 02:32 MCHC 30.8 g/dL (30.0-36.0) 05/11/22 02:32 RDW 13.2 % (12.1-15.1) 05/11/22 02:32 Plt Count 298 10^3/cmm (130-400) 05/11/22 02:32 MPV 8.5 fL (7.4-10.4) 05/11/22 02:32 Neut % (Auto) 66.5 % 05/11/22 02:32 Lymph % (Auto) 15.0 % 05/11/22 02:32 Will % (Auto) 12.3 % 05/11/22 02:32 Eos % (Auto) 4.8 % 05/11/22 02:32 Baso % (Auto) 0.3 % 05/11/22 02:32 Reticulocyte % (Auto) 2.9 % (0.5-2.0) H 05/09/22 05:33 Neut # (Auto) 5.22 10^3/uL (1.8-7.7) 05/11/22 02:32 Lymph # (Auto) 1.2 10^3/uL (0.8-4.8) 05/11/22 02:32 Will # (Auto) 1.0 10^3/uL (0.2-0.9) H 05/11/22 02:32 Eos # (Auto) 0.4 10^3/uL (0.0-0.8) 05/11/22 02:32 Baso # (Auto) 0.0 10^3/uL (0.0-0.1) 05/11/22 02:32 Nucleated RBC % (auto) 0 % 05/11/22 02:32 Nucleated RBCs # 0.0 /100WBC 05/11/22 02:32 PT 17.30 SECONDS (12.1-14.9) H 05/11/22 02:32 INR 1.38 (0.8-1.2) H 05/11/22 02:32 Sodium 134 mmol/L (136-145) L 05/11/22 02:32 Potassium 4.4 mmol/L (3.5-5.1) 05/11/22 02:32 Chloride 101 mmol/L (98-107) 05/11/22 02:32 Carbon Dioxide 25 mmol/L (22-29) 05/11/22 02:32 Anion Gap 12.4 (5-19) 05/11/22 02:32 BUN 27 mg/dL (8-23) H 05/11/22 02:32 Creatinine 1.1 mg/dL (0.5-0.9) H 05/11/22 02:32 GFR Calculation Not Reportable 05/11/22 02:32 Glucose 175 mg/dL (65-115) H 05/11/22 02:32 POC Glucose 150 mg/dL (70-110) H 05/11/22 06:24 Calculated Osmolality 287 mOsm/kg (285-295) 05/11/22 02:32 Calcium 8.3 mg/dL (8.5-10.5) L 05/11/22 02:32 Magnesium 2.0 mg/dL (1.7-2.3) 05/09/22 05:33 Iron 12 ug/dL (37-145) L 05/09/22 05:33 Ferritin 127 ng/mL (15-150) 05/09/22 05:33 Total Bilirubin 0.3 mg/dL (0.15-1.2) 05/09/22 05:33 AST 21 U/L (0-32) 05/09/22 05:33 ALT 15 U/L (0-33) 05/09/22 05:33 Alkaline Phosphatase 47 U/L (35-105) 05/09/22 05:33 NT-Pro-B Natriuret Pep 1898 pg/mL (0-450) H 05/11/22 02:32 Total Protein 6.2 g/dL (6.6-8.7) L 05/09/22 05:33 Albumin 2.9 g/dL (3.5-5.2) L 05/09/22 05:33 Globulin 3.3 g/dL (1.3-4.6) 05/09/22 05:33 SARS-CoV-2 Ag (Rapid) negative (Negative) 05/11/22 08:00 Blood Type O Negative 05/09/22 08:16 Blood Type O Negative 05/09/22 08:16 Rho(D) Type Negative 05/09/22 08:16 Rho(D) Type Negative 05/09/22 08:16 Antibody Screen Negative 05/09/22 08:16 Crossmatch See Detail 05/09/22 08:16 Vitals Last Vital Signs Temp 96.2 F L 05/11/22 10:23 Pulse 96 05/11/22 10:23 Resp 18 05/11/22 10:23 BP 144/64 05/11/22 10:23 Pulse Ox 97 05/11/22 08:00 O2 Del Method 05/11/22 08:00 O2 Flow Rate 2 05/10/22 20:00 FiO2 2 05/08/22 11:15 Discharge Plan Discharge Patient Disposition: Xfer SNF Condition: Stable Prescriptions: New oxycodone 5 mg tablet 5 mg PO Q4H PRN (Reason: pain) 7 Days Qty: 30 0RF aspirin 81 mg Tablet,Delayed Release (Dr/Ec) 81 mg PO DAILY 30 Days Qty: 30 0RF sucralfate 1 gram Tablet 1 g PO Q12H 30 Days Qty: 60 0RF pantoprazole [Protonix] 40 mg tablet,delayed release (DR/EC) 40 mg PO BID 30 Days Qty: 60 0RF Continued furosemide 40 mg tablet 20 mg PO QAM latanoprost 0.005 % drops 1 drp ophthalmic (eye) BEDTIME Rx Instructions: into left eye alendronate 70 mg tablet 70 mg PO Q7D Rx Instructions: on wednesday lovastatin 40 mg tablet 40 mg PO QPM pioglitazone 45 mg tablet 45 mg PO QAM fosinopril 20 mg tablet 20 mg PO QAM digoxin 250 mcg (0.25 mg) tablet 250 mcg PO QAM potassium chloride 20 mEq tablet,ER particles/crystals 20 meq PO QAM amitriptyline 25 mg tablet 25 mg PO BEDTIME ferrous sulfate [FeroSul] 325 mg (65 mg iron) tablet 325 mg PO BEDTIME metformin 1,000 mg tablet 1,000 mg PO BID metoprolol tartrate 25 mg tablet 25 mg PO BEDTIME Changed insulin glargine [Lantus U-100 Insulin] 100 unit/mL solution 15 unit SUBCUT BEDTIME Qty: 10 0RF Discontinued enoxaparin [Lovenox] 30 mg/0.3 mL syringe 30 mg SUBCUT DAILY Qty: 3 0RF hydromorphone 2 mg tablet 2 mg PO Q6H PRN (Reason: pain) Qty: 12 0RF Discharge Orders: Discharge Order (Routine); Ordered 05/11/22 Ordered By: Roman uHi Referrals: Cyril Stratton DO [Physician] - 1 month Jazmin Moreira MD [Physician] - 05/25/22 2:45 pm Kassidy Delarosa [Primary Care Provider] - 4-7 days Discharge Diet: Advance as tolerated and Usual diet Discharge Activity: Limit activity as instructed, Wheelchair as instructed and As per PT/OT instructions Activity Restrictions/Additional Instructions: Elevation to right lower extremity. Maintain current dressing until seen in the office. You may touch her foot down for pivoting, but do not weight-bear on the foot. Follow-up with me as scheduled. -Please recheck hemoglobin on Wednesday -Received 1 unit of blood, on discharge, -Protonix, Carafate -If she has recurrent bloody or black stools, emergency room -Appointment sent for general surgery in 1 month -Monitor for signs of DVTs or PE if so go to emergency room Discharge Attestations Time Spent in Discharge Care*: greater than 30 min Quality Metrics Clinical Quality Measures [ No reported AMI, CVA or VTE this stay] Coding Level of Care Code Acute Chg DC note Diagnoses Elevated INR R79.1 Closed right trimalleolar fracture S82.851A Diabetes mellitus E11.9 Hypertension I10 Atrial fibrillation I48.91 JAMES (acute kidney injury) N17.9 Mass of heart valve I51.89 GI bleed K92.2
--- NOTE | 2022-05-11 11:20 | P.PN_ITS ---
Subjective Subjective: Patient remained in hospital over the weekend, and currently, she is anemic from what appears to be a lower GI bleed. Medical service is working this up, she is to receive a unit of packed red blood cells today, and she is anxious to return to her skilled facility. Medications: Reviewed: Yes Vitals/I&O/Wt Last Vital Signs Temp 97.2 F L 05/11/22 10:38 Pulse 78 05/11/22 10:38 Resp 18 05/11/22 10:38 BP 163/77 05/11/22 10:38 Pulse Ox 97 05/11/22 08:00 O2 Del Method 05/11/22 08:00 O2 Flow Rate 2 05/10/22 20:00 FiO2 2 05/08/22 11:15 05/10/22 05/11/22 05/11/22 22:59 06:59 14:59 Intake Total 520 / 1800 120 / 1920 0 / 0 Balance 520 / 1800 120 / 1920 0 / 0 Physical Exam Const: COMMON NORMALS: no acute distress, patient oriented x3 and alert GENERAL APPEARANCE: cooperative and comfortable ORIENTATION/CONSCIOUSNESS: Yes awake Chest: COMMONS NORMALS: normal inspection of the chest Resp: COMMON NORMALS: normal respiratory effort EFFORT & INSPECTION: Yes able to speak in complete sentences and Yes symmetric chest movement Extremity: RIGHT LOWER EXTREMITY: Yes foot & digits (Large Gaston dressing is still in place and it appears dry.) Right ankle: Yes inspection (Dressing not removed.), Yes ROM (Not evaluated.) and Yes neurovascular exam (Able to wiggle toes normally.) Neuro: COMMON NORMALS: patient oriented x3 SENSORIUM/ORIENTATION: Yes alert Psych: COMMON NORMALS: mental status grossly normal APPEARANCE: Yes grossly normal ATTITUDE: Yes calm and Yes engaged ATTENTION/CONCENTRATION: Yes attention grossly intact Skin: COMMON NORMALS: no rashes or lesions noted GENERAL SKIN EXAM: no rashes or lesions noted Data 05/11/22 02:32 05/11/22 02:32 A&P Assessment and plan (1) Closed right trimalleolar fracture: Patient underwent primary fusion for very unstable right trimalleolar ankle fr acture. From the perspective of her ankle, she is doing well. She has developed a lower GI bleed requiring blood transfusion. She is anxious for return to her skilled facility, and this is planned for today. She will follow- up with me as originally scheduled with regards to her ankle. Qualifiers: Encounter type: initial encounter Qualified Code(s): S82.851A - Displaced trimalleolar fracture of right lower leg, initial encounter for closed fracture (2) Partial blindness: (3) Elevated INR: Attestations Medical Necessity Statement*: Ongoing medical issues following primary fusion right ankle. Coding Level of Care Code Acute Code for [facility] Diagnoses Closed right trimalleolar fracture S82.851A Encounter type: initial encounter Partial blindness H54.7 Elevated INR R79.1
[2022-05-11 11:27] LABS: Glucose Point of Care 252 mg/dL (70-110)
--- NOTE | 2022-05-11 11:52 | PC.SOCIAL ---
Pg 2 IMM Explained to pt Pg 2 IMM. No questions voiced. Provided pt a copy. Initialed, dated, & timed a copy & placed in chart.
[2022-05-11] MEDS: insulin lispro 100 unit/1 mL SUBCUT ×2 (12:23→17:44)
[2022-05-11] MEDS: pantoprazole 40 mg SDV IVP (12:23)
[2022-05-11] MEDS: aspirin 81 mg EC Tablet PO (12:23)
[2022-05-11] MEDS: sucralfate 1 gm Tablet PO (12:23)
--- NOTE | 2022-05-11 12:47 | PC.NURSE ---
Daughter Sonam called for update, patient getting d/c'd daughter asked who was taking her and daughter stated she is not coming up and transporting her. Notified physician.
--- NOTE | 2022-05-11 12:59 | P.PN_ITS ---
Subjective Subjective: patient was seen this morning, she is alert, awake, eating her vietnamese toast, denies bloody or black stools, Vitals/I&O/Wt Last Vital Signs Temp 98.2 F 05/11/22 11:38 Pulse 72 05/11/22 11:38 Resp 18 05/11/22 11:38 BP 135/77 05/11/22 11:38 Pulse Ox 97 05/11/22 08:00 O2 Del Method 05/11/22 08:00 O2 Flow Rate 2 05/10/22 20:00 FiO2 2 05/08/22 11:15 05/10/22 05/11/22 05/11/22 22:59 06:59 14:59 Intake Total 520 / 1800 120 / 1920 240 / 240 Balance 520 / 1800 120 / 1920 240 / 240 Physical Exam Const: COMMON NORMALS: no acute distress and patient oriented x3 Resp: COMMON NORMALS: normal respiratory effort, No retractions, No use of accessory muscles and clear to auscultation bilaterally AUSCULTATION: clear to auscultation bilaterally Cardio: COMMON NORMALS: regular rate, regular rhythm, S1 normal heart sound present and S2 normal heart sound present RATE: regular rate RHYTHM: regular rhythm HEART SOUNDS: S1 normal heart sound present and S2 normal heart sound present GI: COMMON NORMALS: Normal to inspection, nondistended, normoactive bowel sounds present and non-tender Extremity: COMMON NORMALS: no pedal edema Neuro: COMMON NORMALS: patient oriented x3 Psych: COMMON NORMALS: mental status grossly normal Data 05/11/22 02:32 05/11/22 02:32 A&P Assessment and plan (1) Elevated INR: (2) Closed right trimalleolar fracture: Qualifiers: Encounter type: initial encounter Qualified Code(s): S82.851A - Displaced trimalleolar fracture of right lower leg, initial encounter for closed fracture (3) Diabetes mellitus: (4) Hypertension: (5) Atrial fibrillation: (6) JAMES (acute kidney injury): (7) Mass of heart valve: (8) GI bleed: Plan Right trimalleolar ankle fracture -Status post ankle fusioby Dr. Moreira -morphine for pain control -pt ot -scd for dvt prophylaxis -INR 1.88, likely the effect of Coumadin therapy, hold DVT prophylaxis INR 1.88 -She takes Coumadin for atrial fibrillation below is her schedule -5mg po in the am on mon,,wed,wed and wed and 7.5mg po in the am on wed and -she was on coumadin, was supposed to be held on last hospital discharge [facility]2022 [facility] seems as if Coumadin was not stopped, and she did take 7.5 mg yesterday -monitor INR -will hold on ffp or vitamin k or imaging as she is relatively asymptomatic and its been about almost 48 hours since her surgery -if she becomes symptomatic then will order reversal agent and work up Atrial fibrillation, continue digoxin, Coumadin on hold, INR 1.88 Type 2 diabetes mellitus, low-dose sliding scale Mass on heart valve we will do a cardiac echocardiogram JAMES creatinine 1.6, monitor, gentle IV hydration 50 cc Evidence of iron deficiency anemia iron 12 ferritin 127, 1 dose IV Venofer here Anemia, evidence of iron deficiency, Hemoccult positive stools, certainly this will be difficult in terms of her anticoagulation -stop DVT prophylaxis Lovenox -IV Venofer -Monitor hemoglobin -transfuse 1 unit prbc -Protonix, Carafate GI bleed, with anemia, Hemoccult positive stools, indicated of GI bleed, monitor hemoglobin closely, hold lovenox, Protonix, Carafate, hgb 7.2, transfuse 1 unit prbc, Elevated BNP no shortness of breath complaints monitor Patient is okay with CPR but she does not want to be intubated Attestations Medical Necessity Statement*: patient requires hospitalization for anemia, gi bleed Coding Level of Care Code Acute Code for Chg Fwd Diagnoses Elevated INR R79.1 Closed right trimalleolar fracture S82.851A Encounter type: initial encounter Diabetes mellitus E11.9 Hypertension I10 Atrial fibrillation I48.91 JAMES (acute kidney injury) N17.9 Mass of heart valve I51.89 GI bleed K92.2
--- NOTE | 2022-05-11 13:36 | PC.OT ---
Nursing reports that the patient is discharged to LTC facility and waiting on ride. The ride may not come today due to inclement weather. OT services cancelled this date. Nursing notified.
[2022-05-11 16:31] LABS: Basophils % 0.3 %; Eosinophils # 0.4 10^3/uL (0.0-0.8); Hematocrit 28.4 % (37.0-47.0); Lymphocytes # 1.3 10^3/uL (0.8-4.8); Lymphocytes % 17.9 %; Mean Corpuscular HGB Conc 31.7 g/dL (30.0-36.0); Mean Corpuscular Hemoglobin 29.8 pg (28.0-34.0); Mean Platelet Volume 8.5 fL (7.4-10.4); Monocytes # 0.9 10^3/uL (0.2-0.9); Neutrophils # 4.72 10^3/uL (1.8-7.7); Neutrophils % 63.3 %; Nucleated Red Blood Cells % 0 %; Platelet Count 325 10^3/cmm (130-400); Red Blood Count 3.02 10^6/uL (4.1-5.3); Red Cell Distribution Width 13.3 % (12.1-15.1); White Blood Count 7.4 10^3/uL (4.0-10.0)
[2022-05-11 17:20] LABS: Glucose Point of Care 146 mg/dL (70-110)
[2022-05-11] MEDS: atorvastatin 40 mg Tablet 20 MG PO (17:44)
[2022-05-11 20:54] LABS: Glucose Point of Care 272 mg/dL (70-110)
[2022-05-11] MEDS: ferrous sulfate EC 325 mg Tablet PO (21:17)
[2022-05-11] MEDS: amitriptyline 25 mg Tablet PO (21:17)
[2022-05-11] MEDS: metoprolol tartrate 25 mg Tablet PO (21:17)
[2022-05-11] MEDS: insulin glargine 100 units/1 mL 15 UNIT SUBCUT (21:19)
[2022-05-11] MEDS: latanoprost 0.005% Op Soln 2.5 mL Btl 1 DROP EYE-LEFT (21:21)
[2022-05-12] VITALS (8 sets, daily range): BP systolic 164–190; BP diastolic 54–73; PULSE 64–74; RESP 16–18; TEMP 36.6–36.8; O2SAT 94–98
[2022-05-12] MEDS: sucralfate 1 gm Tablet PO (00:17)
[2022-05-12] MEDS: pantoprazole 40 mg SDV IVP (00:17)
[2022-05-12 02:43] LABS: Basophils % 0.5 %; Eosinophils # 0.4 10^3/uL (0.0-0.8); Eosinophils % 4.8 %; Hematocrit 28.8 % (37.0-47.0); Hemoglobin 8.7 g/dL (11.5-15.3); Lymphocytes # 1.4 10^3/uL (0.8-4.8); Lymphocytes % 17.8 %; Mean Corpuscular HGB Conc 30.2 g/dL (30.0-36.0); Mean Corpuscular Hemoglobin 28.5 pg (28.0-34.0); Mean Corpuscular Volume 94.4 fl (81-99); Mean Platelet Volume 8.9 fL (7.4-10.4); Monocytes % 12.3 %; Neutrophils # 5.05 10^3/uL (1.8-7.7); Neutrophils % 63.2 %; Nucleated Red Blood Cells % 0 %; Platelet Count 355 10^3/cmm (130-400); Red Blood Count 3.05 10^6/uL (4.1-5.3); Red Cell Distribution Width 13.2 % (12.1-15.1)
[2022-05-12 03:04] LABS: INR 1.31 (0.8-1.2)
[2022-05-12 03:18] LABS: Anion Gap 13.3 (5-19); Blood Urea Nitrogen 24 mg/dL (8-23); Calcium 8.6 mg/dL (8.5-10.5); Carbon Dioxide 25 mmol/L (22-29); Chloride 99 mmol/L (98-107); Glucose 234 mg/dL (65-115); NT Pro B Type Natriuretic Pept 2346 pg/mL (0-450); Osmolality Calculated 288 mOsm/kg (285-295); Potassium 4.3 mmol/L (3.5-5.1); Sodium 133 mmol/L (136-145)
[2022-05-12 06:30] LABS: Glucose Point of Care 196 mg/dL (70-110)
[2022-05-12] MEDS: lisinopril 20 mg Tablet PO (06:30)
[2022-05-12] MEDS: digoxin 250 mcg Tablet PO (06:31)
[2022-05-12] MEDS: FUROsemide 40 mg Tablet 20 MG PO (06:31)
--- NOTE | 2022-05-12 06:43 | PC.NURSE ---
Dr. Ro notified via VOLATE of pt BP manual 178/54. Pt got lisinopril at 0630.
[2022-05-12] MEDS: aspirin 81 mg EC Tablet PO (08:32)
[2022-05-12] MEDS: insulin lispro 100 unit/1 mL SUBCUT (08:34)
[2022-05-12 11:35] LABS: Glucose Point of Care 228 mg/dL (70-110)
[2022-05-12 11:37] LABS: SARS Covid-2 Antigen negative (Negative)
--- NOTE | 2022-05-12 12:47 | PC.NURSE ---
attempted 3 times to call report to [facility]. upon being transferred by the ink jet operator, there was no answer each time.
--- NOTE | 2022-05-12 12:51 | PC.NURSE ---
patient transported out of facility via EMS.
--- NOTE | 2022-05-12 13:14 | PC.NURSE ---
report called to katie at [facility]
== END 2022-05-12 12:50 | disposition skilled nursing facility (03) | DRG 493 ==
LOC: MEDSURG 19:43
PROVIDERS: Anesthesiology; Admitting Provider Specialist; PCP Registered Nurse; Visit Provider Family Medicine
PROC: 0QSG36Z Reposition Right Tibia with Intramedullary Internal Fixation Device, Percutaneous Approach (ICD-10-PCS; CPT 27870; principal; 2022-05-08 07:00)
DX: S82.851A Displaced trimalleolar fracture of right lower leg, initial encounter for closed fracture (principal); K92.2 Gastrointestinal hemorrhage, unspecified; N17.9 Acute kidney failure, unspecified; W01.0XXA Fall on same level from slipping, tripping and stumbling without subsequent striking against object, initial encounter; E11.42 Type 2 diabetes mellitus with diabetic polyneuropathy; I10 Essential (primary) hypertension; I48.91 Unspecified atrial fibrillation; D50.9 Iron deficiency anemia, unspecified; R79.1 Abnormal coagulation profile; Z79.84 Long term (current) use of oral hypoglycemic drugs; H54.40 Blindness, one eye, unspecified eye
CPT/HCPCS: 36415; 36416; 73600; 76000; 80048; 80053; 82274; 82728; 82962; 83540; 83735; 83880; 85025; 85045; 85610; 86850; 86900; 86920; 87426; 94664; 96372; 96374; 96376; 97165; C1713; C8929; C9113; J0131; J0690; J1100; J1650; J1756; J1815; J2370; J2405; J2704; J2795; J3010; J3490; J7030; P9016

== ENCOUNTER → 2022-05-27 14:45 | Outpatient (BNVA) | payer MEDICARE, MEDICAID, SELFPAY | PROVIDERS: PCP Registered Nurse; Visit Provider Specialist | DX: S82.851A Displaced trimalleolar fracture of right lower leg, initial encounter for closed fracture (principal); X58.XXXA Exposure to other specified factors, initial encounter | CPT/HCPCS: 73610; 99024 ==

== ENCOUNTER → 2022-06-29 13:53 | Outpatient (BNVA) | payer MEDICARE, MEDICAID, SELFPAY | PROVIDERS: PCP Registered Nurse; Visit Provider Specialist | DX: Z98.1 Arthrodesis status (principal); S82.851D Displaced trimalleolar fracture of right lower leg, subsequent encounter for closed fracture with routine healing; X58.XXXD Exposure to other specified factors, subsequent encounter | CPT/HCPCS: 73610; 99024 ==

== ENCOUNTER → 2022-08-03 14:13 | Outpatient (BNVA) | payer MEDICARE, MEDICAID, SELFPAY | PROVIDERS: PCP Registered Nurse; Visit Provider Specialist | DX: S82.851D Displaced trimalleolar fracture of right lower leg, subsequent encounter for closed fracture with routine healing (principal); X58.XXXD Exposure to other specified factors, subsequent encounter; Z98.1 Arthrodesis status | CPT/HCPCS: 73610; 99024; 99213 ==